=== PATIENT | female | born 1985 | race Caucasian/White ===

== ENCOUNTER 2022-07-27 14:08 | Observation (INO) | payer MEDICAID ==
--- NOTE | 2022-07-27 14:14 | ERPHSYRPT ---
- History of Present Illness Time Seen by Provider: 07/27/22 14:13 Source: patient Exam Limitations: no limitations Physician History: This is a 36-year-old white female who has noticed dizziness that began 2 days ago in the morning and has intermittently persisted. Patient states that she is still and the room is spinning. She denies head injury. She is never had a nything like this before. She has no earaches. She has no sore throat. She does states she does not typically eat or drink well or that often. That is a chronic issue for her. There is been no change in her medication. She is a current daily smoker cigarettes. There is associated nausea. Patient also states that she feels unsteady when she is ambulating. Timing/Duration: yesterday Severity: mild Character of Deficits: none Deficits: no difficulties (But does feel unsteady), off balance Baseline/Normal Cognition: alert oriented x 3 Current Cognition: alert oriented x 3 Baseline Gait: walks w/o assistance Associated Symptoms: nausea, other (Feels unsteady when she does walk but can walk), No confusion, No fatigue, No fever, No chills, No loss of consciousness, No vomiting, No insomnia, No ringing in ears, No slurred speech, No vision changes, No chest pain, No headache Allergies/Adverse Reactions: codeine Allergy (Verified 07/27/22 14:46) Sulfa (Sulfonamide Antibiotics) Allergy (Verified 07/27/22 14:46) Home Medications: No Reportable Medications [No Reported Medications] 07/27/22 [History] Travel Risk - International Travel Have you traveled outside of the country in past 3 weeks: No - Coronavirus Screening Are you exhibiting any of the following symptoms?: No Close contact with a COVID-19 positive Pt in past 14-21 Days: No - Review of Systems Constitutional: No Symptoms Eyes: No Symptoms Ears, Nose, & Throat: No Symptoms Respiratory: No Symptoms Cardiac: No Symptoms Abdominal/Gastrointestinal: No Symptoms Genitourinary Symptoms: No Symptoms Musculoskeletal: No Symptoms Skin: No Symptoms Neurological: Dizziness, Other (Feels unsteady when she is ambulating), No Headache Psychological: No Symptoms Endocrine: No Symptoms Hematologic/Lymphatic: No Symptoms Immunological/Allergic: No Symptoms All Other Systems: Reviewed and Negative - Past Medical History Pertinent Past Medical History: Yes - Past Surgical History Past Surgical History: Yes - Nursing Vital Signs Nursing Vital Signs: Initial Vital Signs Temperature 97.0 F 07/27/22 14:31 Pulse Rate 66 07/27/22 14:31 Respiratory Rate 18 07/27/22 14:31 Blood Pressure 123/58 07/27/22 14:31 O2 Sat by Pulse Oximetry 100 07/27/22 14:31 Pain Scale Pain Intensity 0 - [place] Coma Scale Best Eye Response ([place]): (4) open spontaneously Best Verbal Response ([place]): (5) oriented Best Motor Response ([place]): (6) obeys commands [place] Total: 15 - Physical Exam General Appearance: no apparent distress, alert, anxiety, obese Eye Exam: bilateral eye: normal inspection, PERRL, EOMI Ears, Nose, Throat Exam: normal ENT inspection, moist mucous membranes Neck Exam: normal inspection, non-tender, supple, full range of motion Respiratory: normal breath sounds, lungs clear, airway intact, No chest tenderness, No respiratory distress Cardiovascular: regular rate/rhythm, normal heart sounds, normal peripheral pulses Gastrointestinal: soft, normal bowel sounds, No tenderness Pelvic Exam: not done Rectal Exam: not done Back Exam: normal inspection, normal range of motion, No CVA tenderness Extremity Exam: normal inspection, normal range of motion, pelvis stable Mental Status: alert, oriented x 3, cooperative geriatric social worker Exam: normal hearing, normal speech, PERRL, tongue midline Coordination/Gait: normal finger to nose, normal gait, normal cerebellar function Motor/Sensory: no motor deficit, no sensory deficit, no pronator drift Skin Exam: normal color, warm, dry SpO2 Interpretation: normal O2 Delivery: Room Air - Course Nursing assessment & vital signs reviewed: Yes EKG Interpreted by Me: RATE (68), Sinus Rhythm, NORMAL AXIS, NORMAL INTERVALS, NORMAL QRS, NORMAL ST-T, Other (No acute ischemic changes.) Ordered Tests: Active Orders 24 hr Category Date Time Status Clean Catch Urine Specimen STAT Care 07/27/22 14:45 Active EKG-ER Only STAT Care 07/27/22 14:45 Active IV Insertion STAT Care 07/27/22 14:45 Active ABDOMEN AND PELVIS W/0 CONTRAS [CT] Stat Exams 07/27/22 16:21 Taken HEAD WITHOUT CONTRAST [CT] Stat Exams 07/27/22 14:45 Taken CBC W DIFF Stat Lab 07/27/22 14:40 Completed CMP Stat Lab 07/27/22 14:40 Completed CULTURE,URINE Stat Lab 07/27/22 14:47 Received ETHYL ALCOHOL Stat Lab 07/27/22 14:40 Completed HCG,QUALITATIVE URINE Stat Lab 07/27/22 14:47 Completed Lactic Acid Stat Lab 07/27/22 16:42 Completed MAGNESIUM Stat Lab 07/27/22 14:40 Completed Occult Blood Stool [FECAL OCCULT BLOOD - SCREENING] Lab 07/27/22 16:20 Ordered Stat TROPONIN Q4H Lab 07/27/22 14:40 Completed TROPONIN Q4H Lab 07/27/22 18:45 Ordered TROPONIN Q4H Lab 07/27/22 22:45 Ordered UA W/RFX CULTURE Stat Lab 07/27/22 14:47 Completed Urine Triage Profile Stat Lab 07/27/22 14:47 Completed Medication Summary Discontinued Medications Generic Name Dose Route Start Last Admin Trade Name Freq PRN Reason Stop Dose Admin Sodium Chloride 1,000 mls @ 999 mls/hr 07/27/22 14:45 07/27/22 15:57 Sodium Chloride 0.9% 1000 Ml IV 07/27/22 15:45 Infused .Q1H1M STA Infusion Sodium Chloride Confirm 07/27/22 14:52 Sodium Chloride 0.9% 1000 Ml Administered 07/27/22 14:53 Dose 1,000 mls @ ud .ROUTE .STK-MED ONE Prochlorperazine Edisylate 5 mg 07/27/22 14:45 07/27/22 14:56 Prochlorperazine Edisylate 10 Mg/2 Ml Vial IV 07/27/22 14:46 5 mg STAT ONE Administration Prochlorperazine Edisylate Confirm 07/27/22 14:52 Prochlorperazine Edisylate 10 Mg/2 Ml Vial Administered 07/27/22 14:53 Dose 10 mg .ROUTE .STK-MED ONE Lab/Rad Data: Laboratory Result Diagrams 07/27/22 14:40 07/27/22 14:40 Laboratory Results 07/27/22 07/27/22 07/27/22 Range/Units 16:42 14:47 14:47 WBC (4.0-10.5) x10^3/uL RBC (4.1-5.4) x10^6/uL Hgb (12.0-16.0) g/dL Hct (35-47) % MCV (78-100) fL MCH (26-32) pg MCHC (32-36) g/dL RDW (11.5-14.0) % Plt Count (150-450) x10^3/uL MPV (7.5-11.0) fL Gran % (36.0-66.0) % Immature Gran % (Auto) (0.00-0.4) % Nucleat RBC Rel Count (0.00-0.1) % Eos # (Auto) (0-0.5) x10^3/uL Immature Gran # (Auto) (0.00-0.03) x10^3u/L Absolute Lymphs (auto) (1.0-4.6) x10^3/uL Absolute Monos (auto) (0.0-1.3) x10^3/uL Absolute Nucleated RBC (0.00-0.01) x10^3u/L Lymphocytes % (24.0-44.0) % Monocytes % (0.0-12.0) % Eosinophils % (0.00-5.0) % Basophils % (0.0-0.4) % Absolute Granulocytes (1.4-6.9) x10^3/uL Basophils # (0-0.4) x10^3/uL Sodium (137-145) mmol/L Potassium (3.5-5.1) mmol/L Chloride (98-107) mmol/L Carbon Dioxide (22-30) mmol/L Anion Gap (5-15) MEQ/L BUN (7-17) mg/dL Creatinine (0.52-1.04) mg/dL Estimated GFR ML/MIN Glucose (74-106) mg/dL Lactic Acid 2.0 (0.4-2.0) Calcium (8.4-10.2) mg/dL Magnesium (1.6-2.3) mg/dL Total Bilirubin (0.2-1.3) mg/dL AST (14-36) U/L ALT (0-35) U/L Alkaline Phosphatase (38-126) U/L Troponin I (0.000-0.034) ng/mL Serum Total Protein (6.3-8.2) g/dL Albumin (3.5-5.0) g/dL Urinalys Dipstick Clnc MAIN LAB Urine Color YELLOW (YELLOW) Urine Appearance CLEAR (CLEAR) Urine pH 6.0 (5-6) Ur Specific [place] 1.025 (1.005-1.025) POC Urine Protein Conf NEGATIVE (Negative) Urine Ketones NEGATIVE (NEGATIVE) Urine Nitrite NEGATIVE (NEGATIVE) Urine Bilirubin NEGATIVE (NEGATIVE) Urine Urobilinogen 0.2 (0-1) mg/dL Urine Leukocytes NEGATIVE (NEGATIVE) Urine WBC (Auto) 11-15 A (0-5) /HPF Urine RBC (Auto) 0-2 (0-2) /HPF U Hyaline Cast (Auto) 0-2 (0-2) /LPF U Epithel Cells (Auto) RARE (FEW) /HPF Urine Bacteria (Auto) NONE (NEGATIVE) /HPF Urine RBC NEGATIVE (0-5) Jeet/ul Urine Mucus (Auto) SLIGHT A (NEGATIVE) /HPF Ur Culture Indicated? YES Urine Glucose NEGATIVE (NEGATIVE) mg/dL Urine HCG, Qual NEGATIVE (Negative) Urine Opiates Level (NEGATIVE) Ur Methadone (NEGATIVE) Urine Barbiturates (NEGATIVE) Ur Phencyclidine (PCP) (NEGATIVE) Urine Amphetamine (NEGATIVE) U Benzodiazepine Level (NEGATIVE) Urine Cocaine (NEGATIVE) Urine Marijuana (THC) (NEGATIVE) Ethyl Alcohol (0-10) mg/dL Slides for Path Review 07/27/22 07/27/22 07/27/22 Range/Units 14:47 14:40 14:40 WBC 7.9 (4.0-10.5) x10^3/uL RBC 4.74 (4.1-5.4) x10^6/uL Hgb 7.0 L (12.0-16.0) g/dL Hct 27.4 L (35-47) % MCV 57.8 L (78-100) fL MCH 14.8 L (26-32) pg MCHC 25.5 L (32-36) g/dL RDW 23.2 H (11.5-14.0) % Plt Count 499 H (150-450) x10^3/uL MPV 9.1 (7.5-11.0) fL Gran % 52.4 (36.0-66.0) % Immature Gran % (Auto) 0.4 (0.00-0.4) % Nucleat RBC Rel Count 0.0 (0.00-0.1) % Eos # (Auto) 0.36 (0-0.5) x10^3/uL Immature Gran # (Auto) 0.03 (0.00-0.03) x10^3u/L Absolute Lymphs (auto) 2.68 (1.0-4.6) x10^3/uL Absolute Monos (auto) 0.53 (0.0-1.3) x10^3/uL Absolute Nucleated RBC 0.00 (0.00-0.01) x10^3u/L Lymphocytes % 34.1 (24.0-44.0) % Monocytes % 6.7 (0.0-12.0) % Eosinophils % 4.6 (0.00-5.0) % Basophils % 1.8 (0.0-0.4) % Absolute Granulocytes 4.12 (1.4-6.9) x10^3/uL Basophils # 0.14 (0-0.4) x10^3/uL Sodium 138 (137-145) mmol/L Potassium 3.6 (3.5-5.1) mmol/L Chloride 107 (98-107) mmol/L Carbon Dioxide 24 (22-30) mmol/L Anion Gap 11.1 (5-15) MEQ/L BUN 7 (7-17) mg/dL Creatinine 0.65 (0.52-1.04) mg/dL Estimated GFR > 60.0 ML/MIN Glucose 87 (74-106) mg/dL Lactic Acid (0.4-2.0) Calcium 8.9 (8.4-10.2) mg/dL Magnesium 2.1 (1.6-2.3) mg/dL Total Bilirubin 1.00 (0.2-1.3) mg/dL AST 23 (14-36) U/L ALT 14 (0-35) U/L Alkaline Phosphatase 94 (38-126) U/L Troponin I (0.000-0.034) ng/mL Serum Total Protein 6.9 (6.3-8.2) g/dL Albumin 4.1 (3.5-5.0) g/dL Urinalys Dipstick Clnc Urine Color (YELLOW) Urine Appearance (CLEAR) Urine pH (5-6) Ur Specific [place] (1.005-1.025) POC Urine Protein Conf (Negative) Urine Ketones (NEGATIVE) Urine Nitrite (NEGATIVE) Urine Bilirubin (NEGATIVE) Urine Urobilinogen (0-1) mg/dL Urine Leukocytes (NEGATIVE) Urine WBC (Auto) (0-5) /HPF Urine RBC (Auto) (0-2) /HPF U Hyaline Cast (Auto) (0-2) /LPF U Epithel Cells (Auto) (FEW) /HPF Urine Bacteria (Auto) (NEGATIVE) /HPF Urine RBC (0-5) Jeet/ul Urine Mucus (Auto) (NEGATIVE) /HPF Ur Culture Indicated? Urine Glucose (NEGATIVE) mg/dL Urine HCG, Qual (Negative) Urine Opiates Level NEGATIVE (NEGATIVE) Ur Methadone NEGATIVE (NEGATIVE) Urine Barbiturates NEGATIVE (NEGATIVE) Ur Phencyclidine (PCP) NEGATIVE (NEGATIVE) Urine Amphetamine NEGATIVE (NEGATIVE) U Benzodiazepine Level NEGATIVE (NEGATIVE) Urine Cocaine NEGATIVE (NEGATIVE) Urine Marijuana (THC) NEGATIVE (NEGATIVE) Ethyl Alcohol < 10 (0-10) mg/dL Slides for Path Review YES 07/27/22 Range/Units 14:40 WBC (4.0-10.5) x10^3/uL RBC (4.1-5.4) x10^6/uL Hgb (12.0-16.0) g/dL Hct (35-47) % MCV (78-100) fL MCH (26-32) pg MCHC (32-36) g/dL RDW (11.5-14.0) % Plt Count (150-450) x10^3/uL MPV (7.5-11.0) fL Gran % (36.0-66.0) % Immature Gran % (Auto) (0.00-0.4) % Nucleat RBC Rel Count (0.00-0.1) % Eos # (Auto) (0-0.5) x10^3/uL Immature Gran # (Auto) (0.00-0.03) x10^3u/L Absolute Lymphs (auto) (1.0-4.6) x10^3/uL Absolute Monos (auto) (0.0-1.3) x10^3/uL Absolute Nucleated RBC (0.00-0.01) x10^3u/L Lymphocytes % (24.0-44.0) % Monocytes % (0.0-12.0) % Eosinophils % (0.00-5.0) % Basophils % (0.0-0.4) % Absolute Granulocytes (1.4-6.9) x10^3/uL Basophils # (0-0.4) x10^3/uL Sodium (137-145) mmol/L Potassium (3.5-5.1) mmol/L Chloride (98-107) mmol/L Carbon Dioxide (22-30) mmol/L Anion Gap (5-15) MEQ/L BUN (7-17) mg/dL Creatinine (0.52-1.04) mg/dL Estimated GFR ML/MIN Glucose (74-106) mg/dL Lactic Acid (0.4-2.0) Calcium (8.4-10.2) mg/dL Magnesium (1.6-2.3) mg/dL Total Bilirubin (0.2-1.3) mg/dL AST (14-36) U/L ALT (0-35) U/L Alkaline Phosphatase (38-126) U/L Troponin I < 0.012 (0.000-0.034) ng/mL Serum Total Protein (6.3-8.2) g/dL Albumin (3.5-5.0) g/dL Urinalys Dipstick Clnc Urine Color (YELLOW) Urine Appearance (CLEAR) Urine pH (5-6) Ur Specific [place] (1.005-1.025) POC Urine Protein Conf (Negative) Urine Ketones (NEGATIVE) Urine Nitrite (NEGATIVE) Urine Bilirubin (NEGATIVE) Urine Urobilinogen (0-1) mg/dL Urine Leukocytes (NEGATIVE) Urine WBC (Auto) (0-5) /HPF Urine RBC (Auto) (0-2) /HPF U Hyaline Cast (Auto) (0-2) /LPF U Epithel Cells (Auto) (FEW) /HPF Urine Bacteria (Auto) (NEGATIVE) /HPF Urine RBC (0-5) Jeet/ul Urine Mucus (Auto) (NEGATIVE) /HPF Ur Culture Indicated? Urine Glucose (NEGATIVE) mg/dL Urine HCG, Qual (Negative) Urine Opiates Level (NEGATIVE) Ur Methadone (NEGATIVE) Urine Barbiturates (NEGATIVE) Ur Phencyclidine (PCP) (NEGATIVE) Urine Amphetamine (NEGATIVE) U Benzodiazepine Level (NEGATIVE) Urine Cocaine (NEGATIVE) Urine Marijuana (THC) (NEGATIVE) Ethyl Alcohol (0-10) mg/dL Slides for Path Review - Progress Progress: unchanged Progress Note: 07/27/22 17:12 CT scan of head without contrast shows no intracranial abnormality. CT scan of abdomen pelvis without contrast shows transmural wall thickening ascending colon to descending colon consistent with regional colitis. Medical decision making: This patient surprisingly was found to have hemoglobin of 7 and symptomatic anemia. She is weak and dizzy. CAT scan of the abdomen shows picture consistent with regional colitis. However, the patient does not complain of any abdominal pain. She is not having diarrhea per her report. I spoke with Dr. Vinson. We will place her in observation and provide her with intravenous fluids, intravenous antibiotics and transfuse her 2 units of packed red blood cells. We will obtain a stool specimen for occult blood. He will also perform a anemia work-up during this hospitalization as she has no family doctor or primary care physician/provider to follow-up with. Discussed with : Madhav Counseled pt/family regarding: lab results, diagnosis, need for follow-up, rad results - Departure Departure Disposition: Observation Clinical Impression: Symptomatic anemia, Regional colitis Condition: Stable Critical Care Time: Yes Critical Care Time(excluding separately billable procedures): Critical 30-74 mins (40 minutes) Referrals: DOCTOR,NO FAMILY [Primary Care Provider] - Follow up/PCP as directed
[2022-07-27] MEDS ORDERED: Compazine 10 MG/2 ML IV ONE (14:45)
[2022-07-27] MEDS ORDERED: Sodium Chloride 0.9% 1000 ML 1,000 ML IV STA (14:45)
[2022-07-27] MEDS ORDERED: Compazine 10 MG/2 ML ONE (14:52)
[2022-07-27] MEDS ORDERED: Sodium Chloride 0.9% 1000 ML 1,000 ML ONE (14:52)
[2022-07-27 15:16] LABS: Appearance CLEAR (CLEAR); Bilirubin NEGATIVE (NEGATIVE); Epithelial Cells RARE /HPF (FEW); Glucose NEGATIVE (NEGATIVE); Hyaline Casts 0-2 /LPF (0-2); Ketones NEGATIVE (NEGATIVE); Mucus SLIGHT /HPF (NEGATIVE); RBC 0-2 /HPF (0-2); RBC NEGATIVE Ery/ul (0-5); Specific Gravity 1.025 (1.005-1.025)
[2022-07-27 15:17] LABS: Dipstick done @ ? MAIN LAB; Nitrite NEGATIVE (NEGATIVE); Protein,Urine Dip NEGATIVE (Negative); Urine Cultured Indicated? YES; Urobilinogen 0.2 mg/dL (0-1)
[2022-07-27 15:20] LABS: Amphetamine,Urine NEGATIVE (NEGATIVE); Barbiturate,Urine NEGATIVE (NEGATIVE); Benzodiazepine,Urine NEGATIVE (NEGATIVE); Cocaine,Urine NEGATIVE (NEGATIVE); Methadone,Urine NEGATIVE (NEGATIVE); Opiate,Urine NEGATIVE (NEGATIVE); PCP,Urine NEGATIVE (NEGATIVE); THC,Urine NEGATIVE (NEGATIVE)
[2022-07-27 15:21] LABS: Absolute Neutrophil Ct (ANC) 4.12 x10^3/uL (1.4-6.9); Basophil (Absolute #) 0.14 x10^3/uL (0-0.4); Eosinophil % 4.6 % (0.00-5.0); Eosinophil (Absolute #) 0.36 x10^3/uL (0-0.5); Hematocrit 27.4 % (35-47); Lymphocyte (Absolute #) 2.68 x10^3/uL (1.0-4.6); Lymphocytes % 34.1 % (24.0-44.0); Mean Cell Volume 57.8 fL (78-100); Mean Corpuscular Hemoglobin 14.8 pg (26-32); Mean Corpuscular Hgb Concent. 25.5 g/dL (32-36); Mean Platelet Volume 9.1 fL (7.5-11.0); Monocyte (Absolute #) 0.53 x10^3/uL (0.0-1.3); Monocytes % 6.7 % (0.0-12.0); Neutrophil % 52.4 % (36.0-66.0); Platelet Count 499 x10^3/uL (150-450); Red Blood Count 4.74 x10^6/uL (4.1-5.4); Red Cell Distribution Width 23.2 % (11.5-14.0); White Blood Count 7.9 x10^3/uL (4.0-10.5)
[2022-07-27 15:35] LABS: ALBUMIN 4.1 g/dL (3.5-5.0); ALKALINE PHOSPHATASE 94 U/L (38-126); ANION GAP 11.1 MEQ/L (5-15); BLOOD UREA NITROGEN 7 mg/dL (7-17); CHLORIDE 107 mmol/L (98-107); Calcium 8.9 mg/dL (8.4-10.2); Carbon Dioxide 24 mmol/L (22-30); Creatinine 1 0.65 mg/dL (0.52-1.04); EST GLOMERULAR FILTRATION RATE > 60.0 ML/MIN; ETHYL ALCOHOL < 10 mg/dL (0-10); Glucose 87 mg/dL (74-106); MAGNESIUM 2.1 mg/dL (1.6-2.3); Potassium 3.6 mmol/L (3.5-5.1); SGOT/AST 23 U/L (14-36); SGPT/ALT 14 U/L (0-35); SODIUM 138 mmol/L (137-145); Total Protein 6.9 g/dL (6.3-8.2)
[2022-07-27 16:51] LABS: Slide Review 1 YES
[2022-07-27] MEDS ORDERED: PIPERACILLIN/TAZOBACTAM 4.5 GM in Sodium Chloride 100ML MINI-BAG PLUS 100 ML IV ONE (17:22)
[2022-07-27] MEDS ORDERED: Sodium Chloride 100ML MINI-BAG PLUS 100 ML IV ONE (17:36)
[2022-07-27] MEDS ORDERED: PIPERACILLIN/TAZOBACTAM IV ONE (17:36)
[2022-07-27 18:19] LABS: INFLUENZA A NEGATIVE (NEGATIVE); INFLUENZA B NEGATIVE (NEGATIVE); RESPIRATORY SYNCTIAL VIRUS NEGATIVE (Negative); SARS-CoV-2 Xpert Express NEGATIVE (NEGATIVE)
[2022-07-27] MEDS ORDERED: Zofran 4 MG/2 ML VIAL IV PRN (18:29)
[2022-07-27] MEDS ORDERED: TYLENOL 325 MG PO PRN (18:29)
[2022-07-27] MEDS: PIPERACILLIN/TAZOBACTAM 3.375 GM in Sodium Chloride 100ML MINI-BAG PLUS 100 ML IV SCH ×2 (18:38→18:52)
[2022-07-27] MEDS: Sodium Chloride 0.9% 1000 ML 1,000 ML IV SCH (18:50)
--- NOTE | 2022-07-27 19:21 | XRAY ---
Indication: Dizziness. History of breast cancer. Multiple contiguous axial images obtained through the head without contrast. Comparison: None Normal appearing brain parenchyma, ventricles, and bony calvarium for patient's age. 1.8 cm left maxillary sinus polyp/retention cyst. Remaining visualized paranasal sinuses and mastoid air cells are clear. Impression: Normal CT head without contrast exam. Incidental left maxillary sinus polyp/retention cyst. Comment: Preliminary interpretation made by [facility]. No critical discrepancy.
--- NOTE | 2022-07-27 19:23 | XRAY ---
Indication: Dizziness. Low hemoglobin. History of breast cancer. Multiple contiguous axial images obtained through the abdomen and pelvis without contrast. Comparison: None Lung bases clear. Heart not enlarged. Partially visualized bilateral breast implants. Noncontrasted stomach and bowel loops appear nonobstructed. Previous appendectomy and cholecystectomy. Uterus levorotated with IUD in situ. No free fluid/air. Remaining liver, pancreas, spleen, adrenal glands, kidneys, ureters, bladder, uterus, and aorta are unremarkable for noncontrast exam. Osseous structures intact. No suspicious bony lesions. Impression: Negative CT abdomen/pelvis without contrast exam. Comment: Preliminary interpretation made by [facility]. No critical discrepancy.
[2022-07-27 21:03] LABS: ABO TYPING O; Antibody Screen NEGATIVE (NEGATIVE); RH TYPING POSITIVE
[2022-07-27 21:04] LABS: CROSS MATCH (PRBC) COMPATIBLE (COMPATIBLE)
[2022-07-28] MEDS: PIPERACILLIN/TAZOBACTAM 3.375 GM in Sodium Chloride 100ML MINI-BAG PLUS 100 ML IV SCH ×2 (00:34→05:40)
[2022-07-28 04:43] LABS: Absolute Neutrophil Ct (ANC) 4.02 x10^3/uL (1.4-6.9); Eosinophil (Absolute #) 0.43 x10^3/uL (0-0.5); Hematocrit 30.6 % (35-47); Hemoglobin 8.4 g/dL (12.0-16.0); Lymphocyte (Absolute #) 3.56 x10^3/uL (1.0-4.6); Lymphocytes % 41.1 % (24.0-44.0); Mean Cell Volume 63.5 fL (78-100); Mean Corpuscular Hemoglobin 17.4 pg (26-32); Mean Corpuscular Hgb Concent. 27.5 g/dL (32-36); Mean Platelet Volume 8.6 fL (7.5-11.0); Monocyte (Absolute #) 0.53 x10^3/uL (0.0-1.3); Monocytes % 6.1 % (0.0-12.0); Neutrophil % 46.3 % (36.0-66.0); Platelet Count 327 x10^3/uL (150-450); Red Blood Count 4.82 x10^6/uL (4.1-5.4); Red Cell Distribution Width 29.6 % (11.5-14.0); White Blood Count 8.7 x10^3/uL (4.0-10.5)
[2022-07-28 05:00] LABS: ALBUMIN 3.5 g/dL (3.5-5.0); ALKALINE PHOSPHATASE 78 U/L (38-126); ANION GAP 9.5 MEQ/L (5-15); BLOOD UREA NITROGEN 5 mg/dL (7-17); CHLORIDE 108 mmol/L (98-107); Calcium 8.3 mg/dL (8.4-10.2); Carbon Dioxide 25 mmol/L (22-30); Creatinine 1 0.79 mg/dL (0.52-1.04); EST GLOMERULAR FILTRATION RATE > 60.0 ML/MIN; Glucose 80 mg/dL (74-106); Potassium 3.4 mmol/L (3.5-5.1); SGOT/AST 33 U/L (14-36); SGPT/ALT 15 U/L (0-35); SODIUM 139 mmol/L (137-145); Total Protein 6.1 g/dL (6.3-8.2)
[2022-07-28] MEDS ORDERED: PIPERACILLIN/TAZOBACTAM IV ONE (05:19)
[2022-07-28] MEDS ORDERED: Sodium Chloride 100ML MINI-BAG PLUS 100 ML IV ONE (05:23)
[2022-07-28] MEDS: Sodium Chloride 0.9% 1000 ML 1,000 ML IV SCH (10:01)
[2022-07-28 12:53] VITALS: BP 132/62; PULSE 87; O2SAT 97
--- NOTE | 2022-07-28 13:31 | PCM.SSS ---
History of Present Illness - Chief Complaint Chief Complaint: dizziness and weakness for 2-3 days History of Present Illness: is a 36 year old female.who has noticed dizziness that began 2 days ago in the morning and has intermittently persisted. Patient states that she is still and the room is spinning. She denies head injury. She is never had anything like this before. She has no earaches. She has no sore throat. She does states she does not typically eat or drink well or that often. That is a chronic issue for her. There is been no change in her medication. She is a c urrent daily smoker cigarettes. There is associated nausea. Patient also states that she feels unsteady when she is ambulating. Timing/Duration: yesterday Severity: mild Character of Deficits: none Deficits: no difficulties (But does feel unsteady), off balance Baseline/Normal Cognition: alert oriented x 3 Current Cognition: alert oriented x 3 Baseline Gait: walks w/o assistance Associated Symptoms: nausea, other (Feels unsteady when she does walk but can walk), No confusion, No fatigue, No fever, No chills, No loss of consciousness, No vomiting, No insomnia, No ringing in ears, No slurred speech, No vision changes, No chest pain, No headache - Review of Systems Constitutional: Weakness, No Fever, No Chills Eyes: No Symptoms Ears, Nose, & Throat: No Symptoms Respiratory: No Cough, No Short Of Breath Cardiac: No Chest Pain, No Edema, No Syncope Abdominal/Gastrointestinal: No Abdominal Pain, No Nausea, No Vomiting, No Karen rrhea Genitourinary Symptoms: No Dysuria Musculoskeletal: No Back Pain, No Neck Pain Skin: No Rash Neurological: Dizziness, No Focal Weakness, No Sensory Changes Psychological: No Symptoms Endocrine: No Symptoms Hematologic/Lymphatic: No Symptoms Immunological/Allergic: No Symptoms Medications & Allergies Home Medications: Home Medication List Acetaminophen 325 mg [Tylenol 325 mg] 650 mg PO Q4H PRN PRN tablet 07/28/22 [Rx] Allergies/Adverse Reactions: Allergies Allergy/AdvReac Type Severity Reaction Status Date / Time codeine Allergy Verified 07/27/22 14:46 Sulfa (Sulfonamide Allergy Verified 07/27/22 14:46 Antibiotics) - Past Medical History Past Medical History: Yes Reproductive Disorders: Breast Cancer Comment: bilat masectomy for breast cancer and lymph removal on the right. - Female History Hx Last Menstrual Period: week ago Are you now?: No - Past Surgical History Past Surgical History: Yes Female Surgical History: Mastectomy Other Surgical History: bilat mastectomy with reconstruction - Social History Smoking Status: Current every day smoker Exposure to second hand smoke: Yes Alcohol: None Drug Use: none - Physical Exam Vital Signs: Vital Signs - 24 hr Temp Pulse Resp BP Pulse Ox 07/28/22 12:00 97.5 F 87 17 132/62 97 07/28/22 07:48 97.1 F 77 16 119/71 96 07/28/22 04:00 97.7 F 58 L 16 120/69 98 07/28/22 00:00 97.8 F 66 16 130/64 100 07/27/22 20:00 97.7 F 70 18 113/76 99 07/27/22 18:54 97.7 F 70 18 113/76 99 07/27/22 18:29 98 07/27/22 17:44 78 18 115/78 98 07/27/22 15:30 68 16 117/59 98 07/27/22 14:31 97.0 F 66 18 123/58 100 General Appearance: no apparent distress, alert Neurologic Exam: alert, oriented x 3, cooperative, normal mood/affect, nml cerebellar function, nml station & gait, sensation nml, No motor deficits Eye Exam: PERRL/EOMI, eyes nml inspection Ears, Nose, Throat Exam: normal ENT inspection, TMs normal, pharynx normal, moist mucous membranes Neck Exam: normal inspection, non-tender, supple, full range of motion Respiratory Exam: normal breath sounds, lungs clear, No respiratory distress Cardiovascular Exam: regular rate/rhythm, normal heart sounds, normal peripheral pulses Gastrointestinal/Abdomen Exam: soft, normal bowel sounds, No tenderness, No mass Back Exam: normal inspection, normal range of motion, No CVA tenderness, No vertebral tenderness Extremity Exam: normal inspection, normal range of motion, pelvis stable Skin Exam: normal color, warm, dry, No rash Lymphatic Exam: No adenopathy Results - Labs Lab/Micro Results: Lab Results-Last 24 Hours 07/27/22 07/27/22 07/27/22 Range/Units 14:40 14:40 14:40 WBC 7.9 (4.0-10.5) x10^3/uL RBC 4.74 (4.1-5.4) x10^6/uL Hgb 7.0 L (12.0-16.0) g/dL Hct 27.4 L (35-47) % MCV 57.8 L (78-100) fL MCH 14.8 L (26-32) pg MCHC 25.5 L (32-36) g/dL RDW 23.2 H (11.5-14.0) % Plt Count 499 H (150-450) x10^3/uL MPV 9.1 (7.5-11.0) fL Gran % 52.4 (36.0-66.0) % Immature Gran % (Auto) 0.4 (0.00-0.4) % Nucleat RBC Rel Count 0.0 (0.00-0.1) % Eos # (Auto) 0.36 (0-0.5) x10^3/uL Immature Gran # (Auto) 0.03 (0.00-0.03) x10^3u/L Absolute Lymphs (auto) 2.68 (1.0-4.6) x10^3/uL Absolute Monos (auto) 0.53 (0.0-1.3) x10^3/uL Absolute Nucleated RBC 0.00 (0.00-0.01) x10^3u/L Lymphocytes % 34.1 (24.0-44.0) % Monocytes % 6.7 (0.0-12.0) % Eosinophils % 4.6 (0.00-5.0) % Basophils % 1.8 (0.0-0.4) % Absolute Granulocytes 4.12 (1.4-6.9) x10^3/uL Basophils # 0.14 (0-0.4) x10^3/uL Sodium 138 (137-145) mmol/L Potassium 3.6 (3.5-5.1) mmol/L Chloride 107 (98-107) mmol/L Carbon Dioxide 24 (22-30) mmol/L Anion Gap 11.1 (5-15) MEQ/L BUN 7 (7-17) mg/dL Creatinine 0.65 (0.52-1.04) mg/dL Estimated GFR > 60.0 ML/MIN Glucose 87 (74-106) mg/dL Lactic Acid (0.4-2.0) Calcium 8.9 (8.4-10.2) mg/dL Magnesium 2.1 (1.6-2.3) mg/dL Total Bilirubin 1.00 (0.2-1.3) mg/dL AST 23 (14-36) U/L ALT 14 (0-35) U/L Alkaline Phosphatase 94 (38-126) U/L Troponin I < 0.012 (0.000-0.034) ng/mL Serum Total Protein 6.9 (6.3-8.2) g/dL Albumin 4.1 (3.5-5.0) g/dL Urinalys Dipstick Clnc Urine Color (YELLOW) Urine Appearance (CLEAR) Urine pH (5-6) Ur Specific [place] (1.005-1.025) POC Urine Protein Conf (Negative) Urine Ketones (NEGATIVE) Urine Nitrite (NEGATIVE) Urine Bilirubin (NEGATIVE) Urine Urobilinogen (0-1) mg/dL Urine Leukocytes (NEGATIVE) Urine WBC (Auto) (0-5) /HPF Urine RBC (Auto) (0-2) /HPF U Hyaline Cast (Auto) (0-2) /LPF U Epithel Cells (Auto) (FEW) /HPF Urine Bacteria (Auto) (NEGATIVE) /HPF Urine RBC (0-5) Jeet/ul Urine Mucus (Auto) (NEGATIVE) /HPF Ur Culture Indicated? Urine Glucose (NEGATIVE) mg/dL Urine HCG, Qual (Negative) Urine Opiates Level (NEGATIVE) Ur Methadone (NEGATIVE) Urine Barbiturates (NEGATIVE) Ur Phencyclidine (PCP) (NEGATIVE) Urine Amphetamine (NEGATIVE) U Benzodiazepine Level (NEGATIVE) Urine Cocaine (NEGATIVE) Urine Marijuana (THC) (NEGATIVE) Ethyl Alcohol < 10 (0-10) mg/dL Influenza Type A Ag (NEGATIVE) Influenza Type B Ag (NEGATIVE) RSV (PCR) (Negative) SARS-CoV-2 (PCR) (NEGATIVE) Slides for Path Review YES ABO Group Rh Factor Antibody Screen (NEGATIVE) Crossmatch (COMPATIBLE) 07/27/22 07/27/22 07/27/22 Range/Units 14:47 14:47 14:47 WBC (4.0-10.5) x10^3/uL RBC (4.1-5.4) x10^6/uL Hgb (12.0-16.0) g/dL Hct (35-47) % MCV (78-100) fL MCH (26-32) pg MCHC (32-36) g/dL RDW (11.5-14.0) % Plt Count (150-450) x10^3/uL MPV (7.5-11.0) fL Gran % (36.0-66.0) % Immature Gran % (Auto) (0.00-0.4) % Nucleat RBC Rel Count (0.00-0.1) % Eos # (Auto) (0-0.5) x10^3/uL Immature Gran # (Auto) (0.00-0.03) x10^3u/L Absolute Lymphs (auto) (1.0-4.6) x10^3/uL Absolute Monos (auto) (0.0-1.3) x10^3/uL Absolute Nucleated RBC (0.00-0.01) x10^3u/L Lymphocytes % (24.0-44.0) % Monocytes % (0.0-12.0) % Eosinophils % (0.00-5.0) % Basophils % (0.0-0.4) % Absolute Granulocytes (1.4-6.9) x10^3/uL Basophils # (0-0.4) x10^3/uL Sodium (137-145) mmol/L Potassium (3.5-5.1) mmol/L Chloride (98-107) mmol/L Carbon Dioxide (22-30) mmol/L Anion Gap (5-15) MEQ/L BUN (7-17) mg/dL Creatinine (0.52-1.04) mg/dL Estimated GFR ML/MIN Glucose (74-106) mg/dL Lactic Acid (0.4-2.0) Calcium (8.4-10.2) mg/dL Magnesium (1.6-2.3) mg/dL Total Bilirubin (0.2-1.3) mg/dL AST (14-36) U/L ALT (0-35) U/L Alkaline Phosphatase (38-126) U/L Troponin I (0.000-0.034) ng/mL Serum Total Protein (6.3-8.2) g/dL Albumin (3.5-5.0) g/dL Urinalys Dipstick Clnc MAIN LAB Urine Color YELLOW (YELLOW) Urine Appearance CLEAR (CLEAR) Urine pH 6.0 (5-6) Ur Specific [place] 1.025 (1.005-1.025) POC Urine Protein Conf NEGATIVE (Negative) Urine Ketones NEGATIVE (NEGATIVE) Urine Nitrite NEGATIVE (NEGATIVE) Urine Bilirubin NEGATIVE (NEGATIVE) Urine Urobilinogen 0.2 (0-1) mg/dL Urine Leukocytes NEGATIVE (NEGATIVE) Urine WBC (Auto) 11-15 A (0-5) /HPF Urine RBC (Auto) 0-2 (0-2) /HPF U Hyaline Cast (Auto) 0-2 (0-2) /LPF U Epithel Cells (Auto) RARE (FEW) /HPF Urine Bacteria (Auto) NONE (NEGATIVE) /HPF Urine RBC NEGATIVE (0-5) Jeet/ul Urine Mucus (Auto) SLIGHT A (NEGATIVE) /HPF Ur Culture Indicated? YES Urine Glucose NEGATIVE (NEGATIVE) mg/dL Urine HCG, Qual NEGATIVE (Negative) Urine Opiates Level NEGATIVE (NEGATIVE) Ur Methadone NEGATIVE (NEGATIVE) Urine Barbiturates NEGATIVE (NEGATIVE) Ur Phencyclidine (PCP) NEGATIVE (NEGATIVE) Urine Amphetamine NEGATIVE (NEGATIVE) U Benzodiazepine Level NEGATIVE (NEGATIVE) Urine Cocaine NEGATIVE (NEGATIVE) Urine Marijuana (THC) NEGATIVE (NEGATIVE) Ethyl Alcohol (0-10) mg/dL Influenza Type A Ag (NEGATIVE) Influenza Type B Ag (NEGATIVE) RSV (PCR) (Negative) SARS-CoV-2 (PCR) (NEGATIVE) Slides for Path Review ABO Group Rh Factor Antibody Screen (NEGATIVE) Crossmatch (COMPATIBLE) 07/27/22 07/27/22 07/27/22 Range/Units 16:42 16:55 17:38 WBC (4.0-10.5) x10^3/uL RBC (4.1-5.4) x10^6/uL Hgb (12.0-16.0) g/dL Hct (35-47) % MCV (78-100) fL MCH (26-32) pg MCHC (32-36) g/dL RDW (11.5-14.0) % Plt Count (150-450) x10^3/uL MPV (7.5-11.0) fL Gran % (36.0-66.0) % Immature Gran % (Auto) (0.00-0.4) % Nucleat RBC Rel Count (0.00-0.1) % Eos # (Auto) (0-0.5) x10^3/uL Immature Gran # (Auto) (0.00-0.03) x10^3u/L Absolute Lymphs (auto) (1.0-4.6) x10^3/uL Absolute Monos (auto) (0.0-1.3) x10^3/uL Absolute Nucleated RBC (0.00-0.01) x10^3u/L Lymphocytes % (24.0-44.0) % Monocytes % (0.0-12.0) % Eosinophils % (0.00-5.0) % Basophils % (0.0-0.4) % Absolute Granulocytes (1.4-6.9) x10^3/uL Basophils # (0-0.4) x10^3/uL Sodium (137-145) mmol/L Potassium (3.5-5.1) mmol/L Chloride (98-107) mmol/L Carbon Dioxide (22-30) mmol/L Anion Gap (5-15) MEQ/L BUN (7-17) mg/dL Creatinine (0.52-1.04) mg/dL Estimated GFR ML/MIN Glucose (74-106) mg/dL Lactic Acid 2.0 (0.4-2.0) Calcium (8.4-10.2) mg/dL Magnesium (1.6-2.3) mg/dL Total Bilirubin (0.2-1.3) mg/dL AST (14-36) U/L ALT (0-35) U/L Alkaline Phosphatase (38-126) U/L Troponin I (0.000-0.034) ng/mL Serum Total Protein (6.3-8.2) g/dL Albumin (3.5-5.0) g/dL Urinalys Dipstick Clnc Urine Color (YELLOW) Urine Appearance (CLEAR) Urine pH (5-6) Ur Specific [place] (1.005-1.025) POC Urine Protein Conf (Negative) Urine Ketones (NEGATIVE) Urine Nitrite (NEGATIVE) Urine Bilirubin (NEGATIVE) Urine Urobilinogen (0-1) mg/dL Urine Leukocytes (NEGATIVE) Urine WBC (Auto) (0-5) /HPF Urine RBC (Auto) (0-2) /HPF U Hyaline Cast (Auto) (0-2) /LPF U Epithel Cells (Auto) (FEW) /HPF Urine Bacteria (Auto) (NEGATIVE) /HPF Urine RBC (0-5) Jeet/ul Urine Mucus (Auto) (NEGATIVE) /HPF Ur Culture Indicated? Urine Glucose (NEGATIVE) mg/dL Urine HCG, Qual (Negative) Urine Opiates Level (NEGATIVE) Ur Methadone (NEGATIVE) Urine Barbiturates (NEGATIVE) Ur Phencyclidine (PCP) (NEGATIVE) Urine Amphetamine (NEGATIVE) U Benzodiazepine Level (NEGATIVE) Urine Cocaine (NEGATIVE) Urine Marijuana (THC) (NEGATIVE) Ethyl Alcohol (0-10) mg/dL Influenza Type A Ag NEGATIVE (NEGATIVE) Influenza Type B Ag NEGATIVE (NEGATIVE) RSV (PCR) NEGATIVE (Negative) SARS-CoV-2 (PCR) NEGATIVE (NEGATIVE) Slides for Path Review ABO Group O Rh Factor POSITIVE Antibody Screen NEGATIVE (NEGATIVE) Crossmatch COMPATIBLE (COMPATIBLE) 07/27/22 07/28/22 07/28/22 Range/Units 17:40 04:40 04:40 WBC 8.7 (4.0-10.5) x10^3/uL RBC 4.82 (4.1-5.4) x10^6/uL Hgb 8.4 L (12.0-16.0) g/dL Hct 30.6 L (35-47) % MCV 63.5 L D (78-100) fL MCH 17.4 L (26-32) pg MCHC 27.5 L (32-36) g/dL RDW 29.6 H (11.5-14.0) % Plt Count 327 D (150-450) x10^3/uL MPV 8.6 (7.5-11.0) fL Gran % 46.3 (36.0-66.0) % Immature Gran % (Auto) 0.3 (0.00-0.4) % Nucleat RBC Rel Count 0.0 (0.00-0.1) % Eos # (Auto) 0.43 (0-0.5) x10^3/uL Immature Gran # (Auto) 0.03 (0.00-0.03) x10^3u/L Absolute Lymphs (auto) 3.56 (1.0-4.6) x10^3/uL Absolute Monos (auto) 0.53 (0.0-1.3) x10^3/uL Absolute Nucleated RBC 0.00 (0.00-0.01) x10^3u/L Lymphocytes % 41.1 (24.0-44.0) % Monocytes % 6.1 (0.0-12.0) % Eosinophils % 5.0 (0.00-5.0) % Basophils % 1.2 (0.0-0.4) % Absolute Granulocytes 4.02 (1.4-6.9) x10^3/uL Basophils # 0.10 (0-0.4) x10^3/uL Sodium 139 (137-145) mmol/L Potassium 3.4 L (3.5-5.1) mmol/L Chloride 108 H (98-107) mmol/L Carbon Dioxide 25 (22-30) mmol/L Anion Gap 9.5 (5-15) MEQ/L BUN 5 L (7-17) mg/dL Creatinine 0.79 (0.52-1.04) mg/dL Estimated GFR > 60.0 ML/MIN Glucose 80 (74-106) mg/dL Lactic Acid (0.4-2.0) Calcium 8.3 L (8.4-10.2) mg/dL Magnesium (1.6-2.3) mg/dL Total Bilirubin 1.90 H (0.2-1.3) mg/dL AST 33 (14-36) U/L ALT 15 (0-35) U/L Alkaline Phosphatase 78 (38-126) U/L Troponin I (0.000-0.034) ng/mL Serum Total Protein 6.1 L (6.3-8.2) g/dL Albumin 3.5 (3.5-5.0) g/dL Urinalys Dipstick Clnc Urine Color (YELLOW) Urine Appearance (CLEAR) Urine pH (5-6) Ur Specific [place] (1.005-1.025) POC Urine Protein Conf (Negative) Urine Ketones (NEGATIVE) Urine Nitrite (NEGATIVE) Urine Bilirubin (NEGATIVE) Urine Urobilinogen (0-1) mg/dL Urine Leukocytes (NEGATIVE) Urine WBC (Auto) (0-5) /HPF Urine RBC (Auto) (0-2) /HPF U Hyaline Cast (Auto) (0-2) /LPF U Epithel Cells (Auto) (FEW) /HPF Urine Bacteria (Auto) (NEGATIVE) /HPF Urine RBC (0-5) Jeet/ul Urine Mucus (Auto) (NEGATIVE) /HPF Ur Culture Indicated? Urine Glucose (NEGATIVE) mg/dL Urine HCG, Qual (Negative) Urine Opiates Level (NEGATIVE) Ur Methadone (NEGATIVE) Urine Barbiturates (NEGATIVE) Ur Phencyclidine (PCP) (NEGATIVE) Urine Amphetamine (NEGATIVE) U Benzodiazepine Level (NEGATIVE) Urine Cocaine (NEGATIVE) Urine Marijuana (THC) (NEGATIVE) Ethyl Alcohol (0-10) mg/dL Influenza Type A Ag (NEGATIVE) Influenza Type B Ag (NEGATIVE) RSV (PCR) (Negative) SARS-CoV-2 (PCR) (NEGATIVE) Slides for Path Review ABO Group Rh Factor Antibody Screen (NEGATIVE) Crossmatch COMPATIBLE (COMPATIBLE) Microbiology 07/27/22 14:47 Urine Culture - Preliminary Urine, Void NO GROWTH TO DATE - Radiology Impressions Radiology Exams & Impressions: Radiology Procedures Category Date Time Status ABDOMEN AND PELVIS W/0 CONTRAS [CT] Stat Exams 07/27/22 16:21 Completed HEAD WITHOUT CONTRAST [CT] Stat Exams 07/27/22 14:[address]/ABDOMEN AND PELVIS W/0 CONTRAS Indication: Dizziness. Low hemoglobin. History of breast cancer. Multiple contiguous axial images obtained through the abdomen and pelvis without contrast. Comparison: None Lung bases clear. Heart not enlarged. Partially visualized bilateral breast implants. Noncontrasted stomach and bowel loops appear nonobstructed. Previous appendectomy and cholecystectomy. Uterus levorotated with IUD in situ. No free fluid/air. Remaining liver, pancreas, spleen, adrenal glands, kidneys, ureters, bladder, uterus, and aorta are unremarkable for noncontrast exam. Osseous structures intact. No suspicious bony lesions. Impression: Negative CT abdomen/pelvis without contrast exam. 0008 CT/HEAD WITHOUT CONTRAST Indication: Dizziness. History of breast cancer. Multiple contiguous axial images obtained through the head without contrast. Comparison: None Normal appearing brain parenchyma, ventricles, and bony calvarium for patient's age. 1.8 cm left maxillary sinus polyp/retention cyst. Remaining visualized paranasal sinuses and mastoid air cells are clear. Impression: Normal CT head without contrast exam. Incidental left maxillary sinus polyp/retention cyst. Hospital Summary - Hospital Course Hospital Course: Chief Complaint Diagnosis anemia Allergies Allergy/AdvReac Type Severity Reaction Status Date / Time codeine Allergy Verified 07/27/22 14:46 Sulfa (Sulfonamide Allergy Verified 07/27/22 14:46 Antibiotics) Vital Signs (Last 24 hours) Temp Pulse Resp BP Pulse Ox 07/28/22 12:00 97.5 F 87 17 132/62 97 07/28/22 07:48 97.1 F 77 16 119/71 96 07/28/22 04:00 97.7 F 58 L 16 120/69 98 07/28/22 00:00 97.8 F 66 16 130/64 100 07/27/22 20:00 97.7 F 70 18 113/76 99 07/27/22 18:54 97.7 F 70 18 113/76 99 07/27/22 18:29 98 07/27/22 17:44 78 18 115/78 98 07/27/22 15:30 68 16 117/59 98 07/27/22 14:31 97.0 F 66 18 123/58 100 Home Medications Medication Instructions Recorded Confirmed Last Taken Type Acetaminophen 325 mg [Tylenol 650 mg PO Q4H PRN PRN tablet 07/28/22 Unknown Rx 325 mg] Current Medications Generic Name Dose Route Start Last Admin Trade Name Freq PRN Reason Stop Dose Admin Acetaminophen 650 mg 07/27/22 18:29 Acetaminophen 325 Mg Tablet PO 08/26/22 18:28 Q4H PRN PRN PAIN, FEVER, HEADACHE Sodium Chloride 1,000 mls @ 100 mls/hr 07/27/22 18:29 07/28/22 10:01 Sodium Chloride 0.9% 1000 Ml IV 08/26/22 18:28 100 mls/hr .Q10H KENRICK Administration Piperacillin Sod/Tazobactam 100 mls @ 200 mls/hr 07/27/22 18:29 07/28/22 05:40 Sod 3.375 gm/ Sodium Chloride IV 07/30/22 18:28 200 mls/hr Q6HT KENRICK Administration Ondansetron HCl 4 mg 07/27/22 18:29 Ondansetron Hcl 4 Mg/2 Ml Vial IV 08/26/22 18:28 Q6H PRN PRN NAUSEA/VOMITING Discontinued Medications Generic Name Dose Route Start Last Admin Trade Name Pb PRN Reason Stop Dose Admin Sodium Chloride 1,000 mls @ 999 mls/hr 07/27/22 14:45 07/27/22 15:57 Sodium Chloride 0.9% 1000 Ml IV 07/27/22 15:45 Infused .Q1H1M STA Infusion Sodium Chloride Confirm 07/27/22 14:52 Sodium Chloride 0.9% 1000 Ml Administered 07/27/22 14:53 Dose 1,000 mls @ ud .ROUTE .STK-MED ONE Piperacillin Sod/Tazobactam 100 mls @ 200 mls/hr 07/27/22 17:22 07/27/22 17:40 Sod 4.5 gm/ Sodium Chloride IV 07/27/22 17:51 200 mls/hr STAT ONE Administration Sodium Chloride Confirm 07/27/22 17:36 Sodium Chloride 100ml Mini-Bag Plus Administered 07/27/22 17:37 Dose 100 mls @ ud IV .STK-MED ONE Sodium Chloride Confirm 07/28/22 05:23 Sodium Chloride 100ml Mini-Bag Plus Administered 07/28/22 05:24 Dose 100 mls @ ud IV .STK-MED ONE Piperacillin Sod/Tazobactam Sod Confirm 07/27/22 17:36 Piperacillin/Tazobactam Sodium 4.5 Gm Vial Administered 07/27/22 17:37 Dose 4.5 gm IV .STK-MED ONE Piperacillin Sod/Tazobactam Sod Confirm 07/28/22 05:19 Piperacillin/Tazobactam Sodium 3.375 Gm Vial Administered 07/28/22 05:20 Dose 3.375 gm IV .STK-MED ONE Prochlorperazine Edisylate 5 mg 07/27/22 14:45 07/27/22 14:56 Prochlorperazine Edisylate 10 Mg/2 Ml Vial IV 07/27/22 14:46 5 mg STAT ONE Administration Prochlorperazine Edisylate Confirm 07/27/22 14:52 Prochlorperazine Edisylate 10 Mg/2 Ml Vial Administered 07/27/22 14:53 Dose 10 mg .ROUTE .STK-MED ONE Intake & Output (Last 24 hours) 07/26/22 07/27/22 07/28/22 10/31/22 11:59 11:59 11:59 11:59 Intake Total 1634 Output Total 900 Balance 734 Weight 74.7 kg Microbiology Results (Last 24 hours) 07/27/22 14:47 Urine, Void Urine Culture - Preliminary NO GROWTH TO DATE Laboratory Results (Last 24 hours) 07/28/22 07/28/22 07/27/22 04:40 04:40 17:40 WBC 8.7 RBC 4.82 Hgb 8.4 L Hct 30.6 L MCV 63.5 L D MCH 17.4 L MCHC 27.5 L RDW 29.6 H Plt Count 327 D MPV 8.6 Gran % 46.3 Immature Gran % (Auto) 0.3 Nucleat RBC Rel Count 0.0 Eos # (Auto) 0.43 Immature Gran # (Auto) 0.03 Absolute Lymphs (auto) 3.56 Absolute Monos (auto) 0.53 Absolute Nucleated RBC 0.00 Lymphocytes % 41.1 Monocytes % 6.1 Eosinophils % 5.0 Basophils % 1.2 Absolute Granulocytes 4.02 Basophils # 0.10 Sodium 139 Potassium 3.4 L Chloride 108 H Carbon Dioxide 25 Anion Gap 9.5 BUN 5 L Creatinine 0.79 Estimated GFR > 60.0 Glucose 80 Lactic Acid Calcium 8.3 L Magnesium Total Bilirubin 1.90 H AST 33 ALT 15 Alkaline Phosphatase 78 Troponin I Serum Total Protein 6.1 L Albumin 3.5 Urinalys Dipstick Clnc Urine Color Urine Appearance Urine pH Ur Specific [place] POC Urine Protein Conf Urine Ketones Urine Nitrite Urine Bilirubin Urine Urobilinogen Urine Leukocytes Urine WBC (Auto) Urine RBC (Auto) U Hyaline Cast (Auto) U Epithel Cells (Auto) Urine Bacteria (Auto) Urine RBC Urine Mucus (Auto) Ur Culture Indicated? Urine Glucose Urine HCG, Qual Urine Opiates Level Ur Methadone Urine Barbiturates Ur Phencyclidine (PCP) Urine Amphetamine U Benzodiazepine Level Urine Cocaine Urine Marijuana (THC) Ethyl Alcohol Influenza Type A Ag Influenza Type B Ag RSV (PCR) SARS-CoV-2 (PCR) Slides for Path Review ABO Group Rh Factor Antibody Screen Crossmatch COMPATIBLE 07/27/22 07/27/22 07/27/22 17:38 16:55 16:42 WBC RBC Hgb Hct MCV MCH MCHC RDW Plt Count MPV Gran % Immature Gran % (Auto) Nucleat RBC Rel Count Eos # (Auto) Immature Gran # (Auto) Absolute Lymphs (auto) Absolute Monos (auto) Absolute Nucleated RBC Lymphocytes % Monocytes % Eosinophils % Basophils % Absolute Granulocytes Basophils # Sodium Potassium Chloride Carbon Dioxide Anion Gap BUN Creatinine Estimated GFR Glucose Lactic Acid 2.0 Calcium Magnesium Total Bilirubin AST ALT Alkaline Phosphatase Troponin I Serum Total Protein Albumin Urinalys Dipstick Clnc Urine Color Urine Appearance Urine pH Ur Specific [place] POC Urine Protein Conf Urine Ketones Urine Nitrite Urine Bilirubin Urine Urobilinogen Urine Leukocytes Urine WBC (Auto) Urine RBC (Auto) U Hyaline Cast (Auto) U Epithel Cells (Auto) Urine Bacteria (Auto) Urine RBC Urine Mucus (Auto) Ur Culture Indicated? Urine Glucose Urine HCG, Qual Urine Opiates Level Ur Methadone Urine Barbiturates Ur Phencyclidine (PCP) Urine Amphetamine U Benzodiazepine Level Urine Cocaine Urine Marijuana (THC) Ethyl Alcohol Influenza Type A Ag NEGATIVE Influenza Type B Ag NEGATIVE RSV (PCR) NEGATIVE SARS-CoV-2 (PCR) NEGATIVE Slides for Path Review ABO Group O Rh Factor POSITIVE Antibody Screen NEGATIVE Crossmatch COMPATIBLE 07/27/22 07/27/22 07/27/22 14:47 14:47 14:47 WBC RBC Hgb Hct MCV MCH MCHC RDW Plt Count MPV Gran % Immature Gran % (Auto) Nucleat RBC Rel Count Eos # (Auto) Immature Gran # (Auto) Absolute Lymphs (auto) Absolute Monos (auto) Absolute Nucleated RBC Lymphocytes % Monocytes % Eosinophils % Basophils % Absolute Granulocytes Basophils # Sodium Potassium Chloride Carbon Dioxide Anion Gap BUN Creatinine Estimated GFR Glucose Lactic Acid Calcium Magnesium Total Bilirubin AST ALT Alkaline Phosphatase Troponin I Serum Total Protein Albumin Urinalys Dipstick Clnc MAIN LAB Urine Color YELLOW Urine Appearance CLEAR Urine pH 6.0 Ur Specific [place] 1.025 POC Urine Protein Conf NEGATIVE Urine Ketones NEGATIVE Urine Nitrite NEGATIVE Urine Bilirubin NEGATIVE Urine Urobilinogen 0.2 Urine Leukocytes NEGATIVE Urine WBC (Auto) 11-15 A Urine RBC (Auto) 0-2 U Hyaline Cast (Auto) 0-2 U Epithel Cells (Auto) RARE Urine Bacteria (Auto) NONE Urine RBC NEGATIVE Urine Mucus (Auto) SLIGHT A Ur Culture Indicated? YES Urine Glucose NEGATIVE Urine HCG, Qual NEGATIVE Urine Opiates Level NEGATIVE Ur Methadone NEGATIVE Urine Barbiturates NEGATIVE Ur Phencyclidine (PCP) NEGATIVE Urine Amphetamine NEGATIVE U Benzodiazepine Level NEGATIVE Urine Cocaine NEGATIVE Urine Marijuana (THC) NEGATIVE Ethyl Alcohol Influenza Type A Ag Influenza Type B Ag RSV (PCR) SARS-CoV-2 (PCR) Slides for Path Review ABO Group Rh Factor Antibody Screen Crossmatch 07/27/22 07/27/22 07/27/22 14:40 14:40 14:40 WBC 7.9 RBC 4.74 Hgb 7.0 L Hct 27.4 L MCV 57.8 L MCH 14.8 L MCHC 25.5 L RDW 23.2 H Plt Count 499 H MPV 9.1 Gran % 52.4 Immature Gran % (Auto) 0.4 Nucleat RBC Rel Count 0.0 Eos # (Auto) 0.36 Immature Gran # (Auto) 0.03 Absolute Lymphs (auto) 2.68 Absolute Monos (auto) 0.53 Absolute Nucleated RBC 0.00 Lymphocytes % 34.1 Monocytes % 6.7 Eosinophils % 4.6 Basophils % 1.8 Absolute Granulocytes 4.12 Basophils # 0.14 Sodium 138 Potassium 3.6 Chloride 107 Carbon Dioxide 24 Anion Gap 11.1 BUN 7 Creatinine 0.65 Estimated GFR > 60.0 Glucose 87 Lactic Acid Calcium 8.9 Magnesium 2.1 Total Bilirubin 1.00 AST 23 ALT 14 Alkaline Phosphatase 94 Troponin I < 0.012 Serum Total Protein 6.9 Albumin 4.1 Urinalys Dipstick Clnc Urine Color Urine Appearance Urine pH Ur Specific [place] POC Urine Protein Conf Urine Ketones Urine Nitrite Urine Bilirubin Urine Urobilinogen Urine Leukocytes Urine WBC (Auto) Urine RBC (Auto) U Hyaline Cast (Auto) U Epithel Cells (Auto) Urine Bacteria (Auto) Urine RBC Urine Mucus (Auto) Ur Culture Indicated? Urine Glucose Urine HCG, Qual Urine Opiates Level Ur Methadone Urine Barbiturates Ur Phencyclidine (PCP) Urine Amphetamine U Benzodiazepine Level Urine Cocaine Urine Marijuana (THC) Ethyl Alcohol < 10 Influenza Type A Ag Influenza Type B Ag RSV (PCR) SARS-CoV-2 (PCR) Slides for Path Review YES ABO Group Rh Factor Antibody Screen Crossmatch Orders (Last 24 hours) Category Date Time Status Bedrest TOLERATED Activity 07/27/22 18:29 Active Clean Catch Urine Specimen STAT Care 07/27/22 14:45 Completed EKG-ER Only STAT Care 07/27/22 14:45 Completed IV Insertion STAT Care 07/27/22 14:[address] in Observation ROUTINE Care 07/27/22 18:29 Active Telemetry q6h Care 07/27/22 18:29 Active Weight,Daily 0600 Care 07/27/22 18:29 Active Clear Liquid Diet 07/27/22 Dinner Active Discharge Routine Discharge 07/28/22 Ordered ABDOMEN AND PELVIS W/0 CONTRAS [CT] Stat Exams 07/27/22 16:21 Completed HEAD WITHOUT CONTRAST [CT] Stat Exams 07/27/22 14:45 Completed BLOOD COMPONENT REQUEST Stat Lab 07/27/22 17:38 Completed CBC W DIFF AM.LAB Lab 07/28/22 04:40 Completed CBC W DIFF Stat Lab 07/27/22 14:40 Completed CMP AM.LAB Lab 07/28/22 04:40 Completed CMP Stat Lab 07/27/22 14:40 Completed COVID/FLU/RSV Panel Stat Lab 07/27/22 17:38 Completed CULTURE,URINE Stat Lab 07/27/22 14:47 Results ETHYL ALCOHOL Stat Lab 07/27/22 14:40 Completed HCG,QUALITATIVE URINE Stat Lab 07/27/22 14:47 Completed Lactic Acid Stat Lab 07/27/22 16:42 Completed MAGNESIUM Stat Lab 07/27/22 14:40 Completed Occult Blood Stool [FECAL OCCULT BLOOD - SCREENING] Lab 07/27/22 16:20 Rece ived Stat TROPONIN Q4H Lab 07/27/22 14:40 Completed TYPE AND SCREEN Stat Lab 07/27/22 16:55 Completed UA W/RFX CULTURE Stat Lab 07/27/22 14:47 Completed Urine Triage Profile Stat Lab 07/27/22 14:47 Completed Acetaminophen 325 mg [Tylenol 325 mg] Med 07/27/22 18:29 Active 650 mg PO Q4H PRN PRN NaCl 0.9% 100 ml Mini-Bag Plus [Sodium Chloride 100ML Med 07/27/22 17:36 Discontinued MINI-BAG PLUS] 100 ml IV UD NaCl 0.9% 100 ml Mini-Bag Plus [Sodium Chloride 100ML Med 07/28/22 05:23 Discontinued MINI-BAG PLUS] 100 ml IV UD NaCl 0.9% 1000 ml [Sodium Chloride 0.9% 1000 ML] 1,000 Med 07/27/22 14:52 Discontinued ml .ROUTE UD NaCl 0.9% 1000 ml [Sodium Chloride 0.9% 1000 ML] 1,000 Med 07/27/22 18:29 Active ml IV 100 mls/hr NaCl 0.9% 1000 ml [Sodium Chloride 0.9% 1000 ML] 1,000 Med 07/27/22 14:45 Discontinued ml IV 999 mls/hr Ondansetron HCl 4 mg/2 ml [Zofran 4 MG/2 ML VIAL] Med 07/27/22 18:29 Active 4 mg IV Q6H PRN PRN Piperacillin/Tazobactam 3.375G [Piperacillin/Tazobactam Med 07/28/22 05:19 Discontinued ] 3.375 gm IV .STK-MED ONE Piperacillin/Tazobactam 3.375G [Piperacillin/Tazobactam Med 07/27/22 18:29 Active ] 3.375 gm NaCl 0.9% 100 ml Mini-Bag Plus [Sodium Chloride 100ML MINI-BAG PLUS] 100 ml IV Q6HT Piperacillin/Tazobactam Inj [Piperacillin/Tazobactam] Med 07/27/22 17:36 Discontinued 4.5 gm IV .STK-MED ONE Piperacillin/Tazobactam Inj [Piperacillin/Tazobactam] 4 Med 07/27/22 17:22 Discontinued .5 gm NaCl 0.9% 100 ml Mini-Bag Plus [Sodium Chloride 100ML MINI-BAG PLUS] 100 ml IV STAT Prochlorperazine 10 mg/2 ml [Compazine 10 MG/2 ML Med 07/27/22 14:52 Discontinued ] 10 mg .ROUTE .STK-MED ONE Prochlorperazine 10 mg/2 ml [Compazine 10 MG/2 ML Med 07/27/22 14:45 Di scontinued ] 5 mg IV STAT ONE Pulse Oximetry ROUTINE RT 07/27/22 18:29 Completed Patient Care Notes (Last 24 hours) 07/28/22 03:31 Nursing Note by Louisa Barboza 2 units PRBCs transfused. Patient tolerated well, VS remained WNL, patient reports less dizziness at this time. Initialized on 07/28/22 03:31 - END OF NOTE Last Vital Signs Temp 97.5 F 07/28/22 12:00 Pulse 87 07/28/22 12:00 Resp 17 07/28/22 12:00 BP 132/62 07/28/22 12:00 Pulse Ox 97 07/28/22 12:00 Allergies codeine Allergy (Verified 07/27/22 14:46) Sulfa (Sulfonamide Antibiotics) Allergy (Verified 07/27/22 14:46) Active Medications Acetaminophen (Acetaminophen 325 Mg Tablet) 650 mg PO Q4H PRN PRN PRN Reason: PAIN, FEVER, HEADACHE Stop: 08/26/22 18:28 Sodium Chloride (Sodium Chloride 0.9% 1000 Ml) 1,000 mls @ 100 mls/hr IV .Q10H [facility] Stop: 08/26/22 18:28 Last Admin: 07/28/22 10:01 Dose: 100 mls/hr Piperacillin Sod/Tazobactam (Sod 3.375 gm/ Sodium Chloride) 100 mls @ 200 mls/h r IV Q6HT [facility] Stop: 07/30/22 18:28 Last Admin: 07/28/22 05:40 Dose: 200 mls/hr Ondansetron HCl (Ondansetron Hcl 4 Mg/2 Ml Vial) 4 mg IV Q6H PRN PRN PRN Reason: NAUSEA/VOMITING Stop: 08/26/22 18:28 Intake & Output 07/28/22 07/29/22 11:59 11:59 Intake Total 1634 Output Total 900 Balance 734 Weight 74.7 kg Orders 07/28/22 Discharge Routine Lab Tests 07/27/22 07/27/22 07/27/22 14:40 14:40 14:40 WBC 7.9 RBC 4.74 Hgb 7.0 L Hct 27.4 L MCV 57.8 L MCH 14.8 L MCHC 25.5 L RDW 23.2 H Plt Count 499 H MPV 9.1 Gran % 52.4 Immature Gran % (Auto) 0.4 Nucleat RBC Rel Count 0.0 Eos # (Auto) 0.36 Immature Gran # (Auto) 0.03 Absolute Lymphs (auto) 2.68 Absolute Monos (auto) 0.53 Absolute Nucleated RBC 0.00 Lymphocytes % 34.1 Monocytes % 6.7 Eosinophils % 4.6 Basophils % 1.8 Absolute Granulocytes 4.12 Basophils # 0.14 Sodium 138 Potassium 3.6 Chloride 107 Carbon Dioxide 24 Anion Gap 11.1 BUN 7 Creatinine 0.65 Estimated GFR > 60.0 Glucose 87 Lactic Acid Calcium 8.9 Magnesium 2.1 Total Bilirubin 1.00 AST 23 ALT 14 Alkaline Phosphatase 94 Troponin I < 0.012 Serum Total Protein 6.9 Albumin 4.1 Urinalys Dipstick Clnc Urine Color Urine Appearance Urine pH Ur Specific [place] POC Urine Protein Conf Urine Ketones Urine Nitrite Urine Bilirubin Urine Urobilinogen Urine Leukocytes Urine WBC (Auto) Urine RBC (Auto) U Hyaline Cast (Auto) U Epithel Cells (Auto) Urine Bacteria (Auto) Urine RBC Urine Mucus (Auto) Ur Culture Indicated? Urine Glucose Urine HCG, Qual Urine Opiates Level Ur Methadone Urine Barbiturates Ur Phencyclidine (PCP) Urine Amphetamine U Benzodiazepine Level Urine Cocaine Urine Marijuana (THC) Ethyl Alcohol < 10 Influenza Type A Ag Influenza Type B Ag RSV (PCR) SARS-CoV-2 (PCR) Slides for Path Review YES ABO Group Rh Factor Antibody Screen Crossmatch 07/27/22 07/27/22 07/27/22 14:47 14:47 14:47 WBC RBC Hgb Hct MCV MCH MCHC RDW Plt Count MPV Gran % Immature Gran % (Auto) Nucleat RBC Rel Count Eos # (Auto) Immature Gran # (Auto) Absolute Lymphs (auto) Absolute Monos (auto) Absolute Nucleated RBC Lymphocytes % Monocytes % Eosinophils % Basophils % Absolute Granulocytes Basophils # Sodium Potassium Chloride Carbon Dioxide Anion Gap BUN Creatinine Estimated GFR Glucose Lactic Acid Calcium Magnesium Total Bilirubin AST ALT Alkaline Phosphatase Troponin I Serum Total Protein Albumin Urinalys Dipstick Clnc MAIN LAB Urine Color YELLOW Urine Appearance CLEAR Urine pH 6.0 Ur Specific [place] 1.025 POC Urine Protein Conf NEGATIVE Urine Ketones NEGATIVE Urine Nitrite NEGATIVE Urine Bilirubin NEGATIVE Urine Urobilinogen 0.2 Urine Leukocytes NEGATIVE Urine WBC (Auto) 11-15 A Urine RBC (Auto) 0-2 U Hyaline Cast (Auto) 0-2 U Epithel Cells (Auto) RARE Urine Bacteria (Auto) NONE Urine RBC NEGATIVE Urine Mucus (Auto) SLIGHT A Ur Culture Indicated? YES Urine Glucose NEGATIVE Urine HCG, Qual NEGATIVE Urine Opiates Level NEGATIVE Ur Methadone NEGATIVE Urine Barbiturates NEGATIVE Ur Phencyclidine (PCP) NEGATIVE Urine Amphetamine NEGATIVE U Benzodiazepine Level NEGATIVE Urine Cocaine NEGATIVE Urine Marijuana (THC) NEGATIVE Ethyl Alcohol Influenza Type A Ag Influenza Type B Ag RSV (PCR) SARS-CoV-2 (PCR) Slides for Path Review ABO Group Rh Factor Antibody Screen Crossmatch 07/27/22 07/27/22 07/27/22 16:42 16:55 17:38 WBC RBC Hgb Hct MCV MCH MCHC RDW Plt Count MPV Gran % Immature Gran % (Auto) Nucleat RBC Rel Count Eos # (Auto) Immature Gran # (Auto) Absolute Lymphs (auto) Absolute Monos (auto) Absolute Nucleated RBC Lymphocytes % Monocytes % Eosinophils % Basophils % Absolute Granulocytes Basophils # Sodium Potassium Chloride Carbon Dioxide Anion Gap BUN Creatinine Estimated GFR Glucose Lactic Acid 2.0 Calcium Magnesium Total Bilirubin AST ALT Alkaline Phosphatase Troponin I Serum Total Protein Albumin Urinalys Dipstick Clnc Urine Color Urine Appearance Urine pH Ur Specific [place] POC Urine Protein Conf Urine Ketones Urine Nitrite Urine Bilirubin Urine Urobilinogen Urine Leukocytes Urine WBC (Auto) Urine RBC (Auto) U Hyaline Cast (Auto) U Epithel Cells (Auto) Urine Bacteria (Auto) Urine RBC Urine Mucus (Auto) Ur Culture Indicated? Urine Glucose Urine HCG, Qual Urine Opiates Level Ur Methadone Urine Barbiturates Ur Phencyclidine (PCP) Urine Amphetamine U Benzodiazepine Level Urine Cocaine Urine Marijuana (THC) Ethyl Alcohol Influenza Type A Ag NEGATIVE Influenza Type B Ag NEGATIVE RSV (PCR) NEGATIVE SARS-CoV-2 (PCR) NEGATIVE Slides for Path Review ABO Group O Rh Factor POSITIVE Antibody Screen NEGATIVE Crossmatch COMPATIBLE 07/27/22 07/28/22 07/28/22 17:40 04:40 04:40 WBC 8.7 RBC 4.82 Hgb 8.4 L Hct 30.6 L MCV 63.5 L D MCH 17.4 L MCHC 27.5 L RDW 29.6 H Plt Count 327 D MPV 8.6 Gran % 46.3 Immature Gran % (Auto) 0.3 Nucleat RBC Rel Count 0.0 Eos # (Auto) 0.43 Immature Gran # (Auto) 0.03 Absolute Lymphs (auto) 3.56 Absolute Monos (auto) 0.53 Absolute Nucleated RBC 0.00 Lymphocytes % 41.1 Monocytes % 6.1 Eosinophils % 5.0 Basophils % 1.2 Absolute Granulocytes 4.02 Basophils # 0.10 Sodium 139 Potassium 3.4 L Chloride 108 H Carbon Dioxide 25 Anion Gap 9.5 BUN 5 L Creatinine 0.79 Estimated GFR > 60.0 Glucose 80 Lactic Acid Calcium 8.3 L Magnesium Total Bilirubin 1.90 H AST 33 ALT 15 Alkaline Phosphatase 78 Troponin I Serum Total Protein 6.1 L Albumin 3.5 Urinalys Dipstick Clnc Urine Color Urine Appearance Urine pH Ur Specific [place] POC Urine Protein Conf Urine Ketones Urine Nitrite Urine Bilirubin Urine Urobilinogen Urine Leukocytes Urine WBC (Auto) Urine RBC (Auto) U Hyaline Cast (Auto) U Epithel Cells (Auto) Urine Bacteria (Auto) Urine RBC Urine Mucus (Auto) Ur Culture Indicated? Urine Glucose Urine HCG, Qual Urine Opiates Level Ur Methadone Urine Barbiturates Ur Phencyclidine (PCP) Urine Amphetamine U Benzodiazepine Level Urine Cocaine Urine Marijuana (THC) Ethyl Alcohol Influenza Type A Ag Influenza Type B Ag RSV (PCR) SARS-CoV-2 (PCR) Slides for Path Review ABO Group Rh Factor Antibody Screen Crossmatch COMPATIBLE Microbiology 07/27/22 14:47 Urine, Void Urine Culture - Preliminary NO GROWTH TO DATE Patient is strongly advised to follow up with her Oncologist Dr Feranndez in [place] for further follow up for her anemia and breast cancer. - Vitals & Intake/Output Vital Signs: Vital Signs Temperature 97.5 F 07/28/22 12:00 Pulse Rate 87 07/28/22 12:00 Respiratory Rate 17 07/28/22 12:00 Blood Pressure 132/62 07/28/22 12:00 O2 Sat by Pulse Oximetry 97 07/28/22 12:00 Intake & Output: Intake & Output 07/26/22 07/27/22 07/28/22 07/29/22 11:59 11:59 11:59 11:59 Intake Total 1634 Output Total 900 Balance 734 Weight 74.7 kg - Lab Result Diagrams: 07/28/22 04:40 07/28/22 04:40 Lab Results-Last 24 Hrs: Lab Results-Last 24 Hours 07/27/22 07/27/22 07/27/22 Range/Units 14:40 14:40 14:40 WBC 7.9 (4.0-10.5) x10^3/uL RBC 4.74 (4.1-5.4) x10^6/uL Hgb 7.0 L (12.0-16.0) g/dL Hct 27.4 L (35-47) % MCV 57.8 L (78-100) fL MCH 14.8 L (26-32) pg MCHC 25.5 L (32-36) g/dL RDW 23.2 H (11.5-14.0) % Plt Count 499 H (150-450) x10^3/uL MPV 9.1 (7.5-11.0) fL Gran % 52.4 (36.0-66.0) % Immature Gran % (Auto) 0.4 (0.00-0.4) % Nucleat RBC Rel Count 0.0 (0.00-0.1) % Eos # (Auto) 0.36 (0-0.5) x10^3/uL Immature Gran # (Auto) 0.03 (0.00-0.03) x10^3u/L Absolute Lymphs (auto) 2.68 (1.0-4.6) x10^3/uL Absolute Monos (auto) 0.53 (0.0-1.3) x10^3/uL Absolute Nucleated RBC 0.00 (0.00-0.01) x10^3u/L Lymphocytes % 34.1 (24.0-44.0) % Monocytes % 6.7 (0.0-12.0) % Eosinophils % 4.6 (0.00-5.0) % Basophils % 1.8 (0.0-0.4) % Absolute Granulocytes 4.12 (1.4-6.9) x10^3/uL Basophils # 0.14 (0-0.4) x10^3/uL Sodium 138 (137-145) mmol/L Potassium 3.6 (3.5-5.1) mmol/L Chloride 107 (98-107) mmol/L Carbon Dioxide 24 (22-30) mmol/L Anion Gap 11.1 (5-15) MEQ/L BUN 7 (7-17) mg/dL Creatinine 0.65 (0.52-1.04) mg/dL Estimated GFR > 60.0 ML/MIN Glucose 87 (74-106) mg/dL Lactic Acid (0.4-2.0) Calcium 8.9 (8.4-10.2) mg/dL Magnesium 2.1 (1.6-2.3) mg/dL Total Bilirubin 1.00 (0.2-1.3) mg/dL AST 23 (14-36) U/L ALT 14 (0-35) U/L Alkaline Phosphatase 94 (38-126) U/L Troponin I < 0.012 (0.000-0.034) ng/mL Serum Total Protein 6.9 (6.3-8.2) g/dL Albumin 4.1 (3.5-5.0) g/dL Urinalys Dipstick Clnc Urine Color (YELLOW) Urine Appearance (CLEAR) Urine pH (5-6) Ur Specific [place] (1.005-1.025) POC Urine Protein Conf (Negative) Urine Ketones (NEGATIVE) Urine Nitrite (NEGATIVE) Urine Bilirubin (NEGATIVE) Urine Urobilinogen (0-1) mg/dL Urine Leukocytes (NEGATIVE) Urine WBC (Auto) (0-5) /HPF Urine RBC (Auto) (0-2) /HPF U Hyaline Cast (Auto) (0-2) /LPF U Epithel Cells (Auto) (FEW) /HPF Urine Bacteria (Auto) (NEGATIVE) /HPF Urine RBC (0-5) Jeet/ul Urine Mucus (Auto) (NEGATIVE) /HPF Ur Culture Indicated? Urine Glucose (NEGATIVE) mg/dL Urine HCG, Qual (Negative) Urine Opiates Level (NEGATIVE) Ur Methadone (NEGATIVE) Urine Barbiturates (NEGATIVE) Ur Phencyclidine (PCP) (NEGATIVE) Urine Amphetamine (NEGATIVE) U Benzodiazepine Level (NEGATIVE) Urine Cocaine (NEGATIVE) Urine Marijuana (THC) (NEGATIVE) Ethyl Alcohol < 10 (0-10) mg/dL Influenza Type A Ag (NEGATIVE) Influenza Type B Ag (NEGATIVE) RSV (PCR) (Negative) SARS-CoV-2 (PCR) (NEGATIVE) Slides for Path Review YES ABO Group Rh Factor Antibody Screen (NEGATIVE) Crossmatch (COMPATIBLE) 07/27/22 07/27/22 07/27/22 Range/Units 14:47 14:47 14:47 WBC (4.0-10.5) x10^3/uL RBC (4.1-5.4) x10^6/uL Hgb (12.0-16.0) g/dL Hct (35-47) % MCV (78-100) fL MCH (26-32) pg MCHC (32-36) g/dL RDW (11.5-14.0) % Plt Count (150-450) x10^3/uL MPV (7.5-11.0) fL Gran % (36.0-66.0) % Immature Gran % (Auto) (0.00-0.4) % Nucleat RBC Rel Count (0.00-0.1) % Eos # (Auto) (0-0.5) x10^3/uL Immature Gran # (Auto) (0.00-0.03) x10^3u/L Absolute Lymphs (auto) (1.0-4.6) x10^3/uL Absolute Monos (auto) (0.0-1.3) x10^3/uL Absolute Nucleated RBC (0.00-0.01) x10^3u/L Lymphocytes % (24.0-44.0) % Monocytes % (0.0-12.0) % Eosinophils % (0.00-5.0) % Basophils % (0.0-0.4) % Absolute Granulocytes (1.4-6.9) x10^3/uL Basophils # (0-0.4) x10^3/uL Sodium (137-145) mmol/L Potassium (3.5-5.1) mmol/L Chloride (98-107) mmol/L Carbon Dioxide (22-30) mmol/L Anion Gap (5-15) MEQ/L BUN (7-17) mg/dL Creatinine (0.52-1.04) mg/dL Estimated GFR ML/MIN Glucose (74-106) mg/dL Lactic Acid (0.4-2.0) Calcium (8.4-10.2) mg/dL Magnesium (1.6-2.3) mg/dL Total Bilirubin (0.2-1.3) mg/dL AST (14-36) U/L ALT (0-35) U/L Alkaline Phosphatase (38-126) U/L Troponin I (0.000-0.034) ng/mL Serum Total Protein (6.3-8.2) g/dL Albumin (3.5-5.0) g/dL Urinalys Dipstick Clnc MAIN LAB Urine Color YELLOW (YELLOW) Urine Appearance CLEAR (CLEAR) Urine pH 6.0 (5-6) Ur Specific [place] 1.025 (1.005-1.025) POC Urine Protein Conf NEGATIVE (Negative) Urine Ketones NEGATIVE (NEGATIVE) Urine Nitrite NEGATIVE (NEGATIVE) Urine Bilirubin NEGATIVE (NEGATIVE) Urine Urobilinogen 0.2 (0-1) mg/dL Urine Leukocytes NEGATIVE (NEGATIVE) Urine WBC (Auto) 11-15 A (0-5) /HPF Urine RBC (Auto) 0-2 (0-2) /HPF U Hyaline Cast (Auto) 0-2 (0-2) /LPF U Epithel Cells (Auto) RARE (FEW) /HPF Urine Bacteria (Auto) NONE (NEGATIVE) /HPF Urine RBC NEGATIVE (0-5) Jeet/ul Urine Mucus (Auto) SLIGHT A (NEGATIVE) /HPF Ur Culture Indicated? YES Urine Glucose NEGATIVE (NEGATIVE) mg/dL Urine HCG, Qual NEGATIVE (Negative) Urine Opiates Level NEGATIVE (NEGATIVE) Ur Methadone NEGATIVE (NEGATIVE) Urine Barbiturates NEGATIVE (NEGATIVE) Ur Phencyclidine (PCP) NEGATIVE (NEGATIVE) Urine Amphetamine NEGATIVE (NEGATIVE) U Benzodiazepine Level NEGATIVE (NEGATIVE) Urine Cocaine NEGATIVE (NEGATIVE) Urine Marijuana (THC) NEGATIVE (NEGATIVE) Ethyl Alcohol (0-10) mg/dL Influenza Type A Ag (NEGATIVE) Influenza Type B Ag (NEGATIVE) RSV (PCR) (Negative) SARS-CoV-2 (PCR) (NEGATIVE) Slides for Path Review ABO Group Rh Factor Antibody Screen (NEGATIVE) Crossmatch (COMPATIBLE) 07/27/22 07/27/22 07/27/22 Range/Units 16:42 16:55 17:38 WBC (4.0-10.5) x10^3/uL RBC (4.1-5.4) x10^6/uL Hgb (12.0-16.0) g/dL Hct (35-47) % MCV (78-100) fL MCH (26-32) pg MCHC (32-36) g/dL RDW (11.5-14.0) % Plt Count (150-450) x10^3/uL MPV (7.5-11.0) fL Gran % (36.0-66.0) % Immature Gran % (Auto) (0.00-0.4) % Nucleat RBC Rel Count (0.00-0.1) % Eos # (Auto) (0-0.5) x10^3/uL Immature Gran # (Auto) (0.00-0.03) x10^3u/L Absolute Lymphs (auto) (1.0-4.6) x10^3/uL Absolute Monos (auto) (0.0-1.3) x10^3/uL Absolute Nucleated RBC (0.00-0.01) x10^3u/L Lymphocytes % (24.0-44.0) % Monocytes % (0.0-12.0) % Eosinophils % (0.00-5.0) % Basophils % (0.0-0.4) % Absolute Granulocytes (1.4-6.9) x10^3/uL Basophils # (0-0.4) x10^3/uL Sodium (137-145) mmol/L Potassium (3.5-5.1) mmol/L Chloride (98-107) mmol/L Carbon Dioxide (22-30) mmol/L Anion Gap (5-15) MEQ/L BUN (7-17) mg/dL Creatinine (0.52-1.04) mg/dL Estimated GFR ML/MIN Glucose (74-106) mg/dL Lactic Acid 2.0 (0.4-2.0) Calcium (8.4-10.2) mg/dL Magnesium (1.6-2.3) mg/dL Total Bilirubin (0.2-1.3) mg/dL AST (14-36) U/L ALT (0-35) U/L Alkaline Phosphatase (38-126) U/L Troponin I (0.000-0.034) ng/mL Serum Total Protein (6.3-8.2) g/dL Albumin (3.5-5.0) g/dL Urinalys Dipstick Clnc Urine Color (YELLOW) Urine Appearance (CLEAR) Urine pH (5-6) Ur Specific [place] (1.005-1.025) POC Urine Protein Conf (Negative) Urine Ketones (NEGATIVE) Urine Nitrite (NEGATIVE) Urine Bilirubin (NEGATIVE) Urine Urobilinogen (0-1) mg/dL Urine Leukocytes (NEGATIVE) Urine WBC (Auto) (0-5) /HPF Urine RBC (Auto) (0-2) /HPF U Hyaline Cast (Auto) (0-2) /LPF U Epithel Cells (Auto) (FEW) /HPF Urine Bacteria (Auto) (NEGATIVE) /HPF Urine RBC (0-5) Jeet/ul Urine Mucus (Auto) (NEGATIVE) /HPF Ur Culture Indicated? Urine Glucose (NEGATIVE) mg/dL Urine HCG, Qual (Negative) Urine Opiates Level (NEGATIVE) Ur Methadone (NEGATIVE) Urine Barbiturates (NEGATIVE) Ur Phencyclidine (PCP) (NEGATIVE) Urine Amphetamine (NEGATIVE) U Benzodiazepine Level (NEGATIVE) Urine Cocaine (NEGATIVE) Urine Marijuana (THC) (NEGATIVE) Ethyl Alcohol (0-10) mg/dL Influenza Type A Ag NEGATIVE (NEGATIVE) Influenza Type B Ag NEGATIVE (NEGATIVE) RSV (PCR) NEGATIVE (Negative) SARS-CoV-2 (PCR) NEGATIVE (NEGATIVE) Slides for Path Review ABO Group O Rh Factor POSITIVE Antibody Screen NEGATIVE (NEGATIVE) Crossmatch COMPATIBLE (COMPATIBLE) 07/27/22 07/28/22 07/28/22 Range/Units 17:40 04:40 04:40 WBC 8.7 (4.0-10.5) x10^3/uL RBC 4.82 (4.1-5.4) x10^6/uL Hgb 8.4 L (12.0-16.0) g/dL Hct 30.6 L (35-47) % MCV 63.5 L D (78-100) fL MCH 17.4 L (26-32) pg MCHC 27.5 L (32-36) g/dL RDW 29.6 H (11.5-14.0) % Plt Count 327 D (150-450) x10^3/uL MPV 8.6 (7.5-11.0) fL Gran % 46.3 (36.0-66.0) % Immature Gran % (Auto) 0.3 (0.00-0.4) % Nucleat RBC Rel Count 0.0 (0.00-0.1) % Eos # (Auto) 0.43 (0-0.5) x10^3/uL Immature Gran # (Auto) 0.03 (0.00-0.03) x10^3u/L Absolute Lymphs (auto) 3.56 (1.0-4.6) x10^3/uL Absolute Monos (auto) 0.53 (0.0-1.3) x10^3/uL Absolute Nucleated RBC 0.00 (0.00-0.01) x10^3u/L Lymphocytes % 41.1 (24.0-44.0) % Monocytes % 6.1 (0.0-12.0) % Eosinophils % 5.0 (0.00-5.0) % Basophils % 1.2 (0.0-0.4) % Absolute Granulocytes 4.02 (1.4-6.9) x10^3/uL Basophils # 0.10 (0-0.4) x10^3/uL Sodium 139 (137-145) mmol/L Potassium 3.4 L (3.5-5.1) mmol/L Chloride 108 H (98-107) mmol/L Carbon Dioxide 25 (22-30) mmol/L Anion Gap 9.5 (5-15) MEQ/L BUN 5 L (7-17) mg/dL Creatinine 0.79 (0.52-1.04) mg/dL Estimated GFR > 60.0 ML/MIN Glucose 80 (74-106) mg/dL Lactic Acid (0.4-2.0) Calcium 8.3 L (8.4-10.2) mg/dL Magnesium (1.6-2.3) mg/dL Total Bilirubin 1.90 H (0.2-1.3) mg/dL AST 33 (14-36) U/L ALT 15 (0-35) U/L Alkaline Phosphatase 78 (38-126) U/L Troponin I (0.000-0.034) ng/mL Serum Total Protein 6.1 L (6.3-8.2) g/dL Albumin 3.5 (3.5-5.0) g/dL Urinalys Dipstick Clnc Urine Color (YELLOW) Urine Appearance (CLEAR) Urine pH (5-6) Ur Specific [place] (1.005-1.025) POC Urine Protein Conf (Negative) Urine Ketones (NEGATIVE) Urine Nitrite (NEGATIVE) Urine Bilirubin (NEGATIVE) Urine Urobilinogen (0-1) mg/dL Urine Leukocytes (NEGATIVE) Urine WBC (Auto) (0-5) /HPF Urine RBC (Auto) (0-2) /HPF U Hyaline Cast (Auto) (0-2) /LPF U Epithel Cells (Auto) (FEW) /HPF Urine Bacteria (Auto) (NEGATIVE) /HPF Urine RBC (0-5) Jeet/ul Urine Mucus (Auto) (NEGATIVE) /HPF Ur Culture Indicated? Urine Glucose (NEGATIVE) mg/dL Urine HCG, Qual (Negative) Urine Opiates Level (NEGATIVE) Ur Methadone (NEGATIVE) Urine Barbiturates (NEGATIVE) Ur Phencyclidine (PCP) (NEGATIVE) Urine Amphetamine (NEGATIVE) U Benzodiazepine Level (NEGATIVE) Urine Cocaine (NEGATIVE) Urine Marijuana (THC) (NEGATIVE) Ethyl Alcohol (0-10) mg/dL Influenza Type A Ag (NEGATIVE) Influenza Type B Ag (NEGATIVE) RSV (PCR) (Negative) SARS-CoV-2 (PCR) (NEGATIVE) Slides for Path Review ABO Group Rh Factor Antibody Screen (NEGATIVE) Crossmatch COMPATIBLE (COMPATIBLE) Micro Results-Entire Visit: Microbiology 07/27/22 14:47 Urine Culture - Preliminary Urine, Void NO GROWTH TO DATE - Radiology Exams Ordered Rad Exams-Entire Visit: Radiology Procedures Category Date Time Status ABDOMEN AND PELVIS W/0 CONTRAS [CT] Stat Exams 07/27/22 16:21 Completed HEAD WITHOUT CONTRAST [CT] Stat Exams 07/27/22 14:45 Completed - Discharge Discharge Date: 07/28/22 Disposition: Home, Self-Care Condition: Stable Prescriptions: New Acetaminophen 325 mg [Tylenol 325 mg] 650 mg PO Q4H PRN PRN tablet PRN Reason: Pain, Fever, Headache Instructions: Anemia Caused by Low Iron, Adult (DC) Additional Instructions: Follow up with your breast cancer DrJoseph Follow up with: PHYLICIA LEVI MD [ACTIVE STAFF] - 5 Days Forms: Discharge Instructions
[2022-07-28 14:06] LABS: Slide Review 1 YES
== END 2022-07-28 12:38 | disposition home or self-care (01) ==
LOC: ED 14:08 → MED SURG 18:27
PROVIDERS: ADMIT General Practice; ATTEND General Practice
DX: D64.9 Anemia, unspecified (principal); K52.9 Noninfective gastroenteritis and colitis, unspecified; Z72.0 Tobacco use; Z79.899 Other long term (current) drug therapy; Z20.828 Contact with and (suspected) exposure to other viral communicable diseases; Z85.3 Personal history of malignant neoplasm of breast
CPT/HCPCS: 0241U; 36000; 36415; 70450; 74176; 80053; 80307; 81015; 81025; 82274; 83605; 83735; 84484; 85025; 86850; 86900; 86901; 86922; 87086; 93005; 96374; 99285; 99291; P9016; 36430; 93268; J2543; G0328; G0378; G0480

== ENCOUNTER 2022-08-27 19:10 | Emergency (ER) | payer MEDICAID ==
[2022-08-27 20:04] VITALS: BP 115/58; PULSE 94; O2SAT 99
[2022-08-27] MEDS ORDERED: Vibramycin 100 MG PO ONE (20:40)
--- NOTE | 2022-08-27 20:40 | ERPHSYRPT ---
- History of Present Illness Time Seen by Provider: 08/27/22 20:40 Source: patient Exam Limitations: no limitations Patient Subjective Stated Complaint: pt states she has been having pain in her face, under her rt nare for the last week has been worse the last 3-[address] [facility] is very tender to touch and the roof of her mouth is tender as well Triage Nursing Assessment: pt alert and oriented, answers questions approp. pt ambulatory with steady gait noted. respirations nonlabored. skin warm and dry. pt reports tenderness to face under rt nare. no redness or open area noted. Physician History: 36-year-old female presents to our ED with a 3 to 4-day history of progressive swelling of her right nasolabial fold. The area is tender. Mild erythema. Appears to be a abscess. No fever. No trauma. No other complaints. Patient took ibuprofen prior to arrival. Patient plan additional pain medication. Patient denies the possibility of . Significant other at bedside. They voiced no other complaints or concerns at this time. Portions of this note were created with voice recognition technology. There may be grammatical, spelling, punctuation or sound alike errors Timing/Duration: day(s) (3 to 4 days) Severity: moderate Modifying Factors: Improves With: nothing Associated Symptoms: denies symptoms Allergies/Adverse Reactions: codeine Allergy (Verified 08/27/22 20:04) Sulfa (Sulfonamide Antibiotics) Allergy (Verified 08/27/22 20:04) Hx Tetanus, Diphtheria Vaccination/Date Given: No Hx Influenza Vaccination/Date Given: No Hx Pneumococcal Vaccination/Date Given: No Immunizations Up to Date: No Travel Risk - International Travel Have you traveled outside of the country in past 3 weeks: No - Coronavirus Screening Are you exhibiting any of the following symptoms?: No Close contact with a COVID-19 positive Pt in past 14-21 Days: No - Vaccine Status Have you recieved a Covid-19 vaccination: No - Review of Systems Constitutional: No Symptoms, No Fever, No Chills Eyes: No Symptoms Ears, Nose, & Throat: No Symptoms Respiratory: No Symptoms, No Cough, No Dyspnea Cardiac: No Symptoms, No Chest Pain, No Edema, No Syncope Abdominal/Gastrointestinal: No Symptoms, No Abdominal Pain, No Nausea, No Vomiting, No Diarrhea Genitourinary Symptoms: No Symptoms, No Dysuria Musculoskeletal: No Symptoms, No Back Pain, No Neck Pain Skin: No Symptoms, No Rash Neurological: No Symptoms, No Dizziness, No Focal Weakness, No Sensory Changes Psychological: No Symptoms Endocrine: No Symptoms Hematologic/Lymphatic: No Symptoms Immunological/Allergic: No Symptoms All Other Systems: Reviewed and Negative - Past Medical History Pertinent Past Medical History: Yes Female Reproductive Disorders: Breast Cancer Other Medical History: bilat mastectomy for breast cancer and lymph removal on the right. anemia - Past Surgical History Past Surgical History: Yes Gastrointestinal: Appendectomy, Cholecystectomy Female Surgical History: Mastectomy Other Surgical History: bilat mastectomy with reconstruction - Social History Smoking Status: Current every day smoker How long have you smoked: 18 yrs Exposure to second hand smoke: Yes Drug Use: none Patient Lives Alone: No - Female History Hx Last Menstrual Period: last week Hx Now: No - Nursing Vital Signs Nursing Vital Signs: Initial Vital Signs Temperature 98.9 F 08/27/22 19:56 Pulse Rate 94 H 08/27/22 19:56 Respiratory Rate 16 08/27/22 19:56 Blood Pressure 115/58 08/27/22 19:56 O2 Sat by Pulse Oximetry 99 08/27/22 19:56 Pain Scale Pain Intensity 8 - Physical Exam General Appearance: no apparent distress, alert, other (Right nasolabial fold abscess formation. Area is tender mild erythema. No alton cellulitis at this time. No fluctuance. No indication for drainage at this time) Eye Exam: PERRL/EOMI, eyes nml inspection Ears, Nose, Throat Exam: normal ENT inspection, TMs normal, pharynx normal, moist mucous membranes, other (Abscess formation at the right nasolabial fold.) Neck Exam: normal inspection, non-tender, supple, full range of motion Respiratory Exam: normal breath sounds, lungs clear, No respiratory distress Cardiovascular Exam: regular rate/rhythm, normal heart sounds, normal peripheral pulses Gastrointestinal/Abdomen Exam: soft, normal bowel sounds, No tenderness, No mass Back Exam: normal inspection, normal range of motion, No CVA tenderness, No vertebral tenderness Extremity Exam: normal inspection, normal range of motion, pelvis stable Neurologic Exam: alert, oriented x 3, cooperative, normal mood/affect, nml cerebellar function, nml station & gait, sensation nml, No motor deficits Skin Exam: normal color, warm, dry, No rash Lymphatic Exam: No adenopathy SpO2 Interpretation: normal SpO2: 99 O2 Delivery: Room Air - Course Nursing assessment & vital signs reviewed: Yes - Progress Progress: improved Progress Note: Patient reassessed. She is comfortable. Patient declined pain medication. Patient received a dose of doxycycline in our ED. He prescription for the same was forwarded to patient's pharmacy. Patient currently has an appointment with Dr. Levi scheduled for September 05. Patient voices no other complaints or concerns at this time. Portions of this note were created with voice recognition technology. There may be grammatical, spelling, punctuation or sound alike errors 08/27/22 20:43 Counseled pt/family regarding: diagnosis, need for follow-up - Departure Departure Disposition: Home Clinical Impression: Abscess Condition: Stable Critical Care Time: No Referrals: DOCTOR,NO FAMILY [Primary Care Provider] - Follow up/PCP as directed PHYLICIA LEVI MD [ACTIVE STAFF] - Follow up/PCP as directed Additional Instructions: Discharge/Care Plan TRICE RICKS was seen on 08/27/22 in the Emergency Room. The patient was counseled regarding Diagnosis,Lab results, Imaging studies, need for follow up and when to return to the Emergency Room. Prescriptions given: Discharge Note I have spoken with the patient and/or caregivers. I have explained the patient's condition, diagnosis and treatment plan based on the information available to me at this time. I have answered the patient's and/or caregiver's questions and addressed any concerns. The patient and/or caregivers have as good understanding of the patient's diagnosis, condition and treatment plan as can be expected at this point. The vital signs have been stable. The patient's condition is stable and appropriate for discharge from the emergency department. The patient will pursue further outpatient evaluation with the primary care physician or other designated or consulting physician as outlined in the discharge instructions. The patient and/or caregivers are agreeable to this plan of care and follow-up instructions have been explained in detail. The patient and/or caregivers have received these instruction. The patient/and or caregivers are aware that any significant change in condition or worsening of symptoms should prompt an immediate return to this or the closest emergency department or call 911. Prescriptions: Doxycycline Hyclate 100 mg [Vibramycin 100 MG] 100 mg PO BID #14 tab
[2022-08-27] MEDS ORDERED: Vibramycin 100 MG ONE (20:45)
== END 2022-08-27 20:52 | disposition home or self-care (01) ==
LOC: ED 19:10
DX: J34.0 Abscess, furuncle and carbuncle of nose (principal); Z28.310 Unvaccinated for COVID-19; Z72.0 Tobacco use
CPT/HCPCS: 99281; A9270-GY

== ENCOUNTER 2023-08-15 19:37 | Emergency (ER) | payer MEDICAID ==
[2023-08-15 19:59] VITALS: TEMP 96.8
[2023-08-15 20:15] LABS: Absolute Neutrophil Ct (ANC) 4.93 x10^3/uL (1.4-6.9); BASOPHIL % 1.1 % (0.0-0.4); Eosinophil % 4.8 % (0.00-5.0); Eosinophil (Absolute #) 0.42 x10^3/uL (0-0.5); Hematocrit 42.4 % (35-47); Hemoglobin 13.7 g/dL (12.0-16.0); IMMATURE GRAN # 0.03 x10^3u/L (0.00-0.03); IMMATURE GRAN % 0.3 % (0.00-0.4); Lymphocyte (Absolute #) 2.67 x10^3/uL (1.0-4.6); Lymphocytes % 30.5 % (24.0-44.0); Mean Cell Volume 87.8 fL (78-100); Mean Corpuscular Hemoglobin 28.4 pg (26-32); Mean Corpuscular Hgb Concent. 32.3 g/dL (32-36); Mean Platelet Volume 9.2 fL (7.5-11.0); Monocytes % 6.9 % (0.0-12.0); Neutrophil % 56.4 % (36.0-66.0); Platelet Count 340 x10^3/uL (150-450); Red Blood Count 4.83 x10^6/uL (4.1-5.4); Red Cell Distribution Width 14.8 % (11.5-14.0); White Blood Count 8.8 x10^3/uL (4.0-10.5)
--- NOTE | 2023-08-15 20:22 | ERPHSYRPT ---
- History of Present Illness Source: patient, other (Spouse) Exam Limitations: no limitations Patient Subjective Stated Complaint: pt states that she has had dizziness since friday Triage Nursing Assessment: pt ambulated into the er; pt is axo x4; c/o dizziness; c/o headache; c/o nausea; pupils 3 mm and PERRL; strong cameron sample tester; strong cameron pedal pushes; skin PDW; no respiratory distress present; vitals wnl Physician History: Patient is a 37-year-old female with dizziness intermittently x4 days. Patient denies otalgia, ringing in ears, or roaring in ears. Dizziness is worse when she goes from sitting to standing position. Patient states she has a history of anemia of unknown etiology and had to get a transfusion in the past. Patient also has a history of breast cancer with bilateral mastectomy. She received tamoxifen after her surgeries but no chemotherapy or radiation. Patient states she has a mild frontal headache which she rates at 3 out of 10. Pain is dull nothing seems make it better or worse. She had some nausea without vomiting. She denies at this time. Patient also denies chest pain, , dyspnea, cough, coryza, and fever. There is no focal weakness and patient is neurologically intact. Timing/Duration: other (Intermittently for 4 days) Severity: mild Modifying Factors: Improves With: other (Worse when going from sitting to standing position.) Associated Symptoms: denies symptoms Allergies/Adverse Reactions: codeine Allergy (Verified 08/15/23 19:44) Sulfa (Sulfonamide Antibiotics) Allergy (Verified 08/15/23 19:44) Home Medications: Iron 18 mg PO DAILY 08/15/23 [History] Hx Tetanus, Diphtheria Vaccination/Date Given: No Hx Influenza Vaccination/Date Given: No Hx Pneumococcal Vaccination/Date Given: No Travel Risk - International Travel Have you traveled outside of the country in past 3 weeks: No - Coronavirus Screening Are you exhibiting any of the following symptoms?: No Close contact with a COVID-19 positive Pt in past 14-21 Days: No - Vaccine Status Have you recieved a Covid-19 vaccination: No - Review of Systems Constitutional: No Symptoms Eyes: No Symptoms Ears, Nose, & Throat: No Symptoms Respiratory: No Symptoms Cardiac: No Symptoms Abdominal/Gastrointestinal: No Symptoms Genitourinary Symptoms: No Symptoms Musculoskeletal: No Symptoms Skin: No Symptoms Neurological: Dizziness Psychological: No Symptoms Endocrine: No Symptoms Hematologic/Lymphatic: No Symptoms Immunological/Allergic: No Symptoms - Past Medical History Pertinent Past Medical History: Yes Cardiac History: Other Female Reproductive Disorders: Breast Cancer Other Medical History: bilat mastectomy for breast cancer and lymph removal on the right. anemia - Past Surgical History Past Surgical History: Yes Gastrointestinal: Appendectomy, Cholecystectomy Female Surgical History: Mastectomy Other Surgical History: bilat mastectomy with reconstruction - Social History Smoking Status: Current every day smoker How long have you smoked: 18 yrs Exposure to second hand smoke: Yes Drug Use: none Patient Lives Alone: No - Female History Hx Now: No - Nursing Vital Signs Nursing Vital Signs: Initial Vital Signs Temperature 96.8 F 08/15/23 19:46 Pulse Rate 79 08/15/23 19:46 Respiratory Rate 18 08/15/23 19:46 Blood Pressure 123/56 08/15/23 19:46 O2 Sat by Pulse Oximetry 100 08/15/23 19:46 Pain Scale Pain Intensity 0 Within normal limits - Physical Exam General Appearance: no apparent distress Eye Exam: PERRL/EOMI, eyes nml inspection Ears, Nose, Throat Exam: normal ENT inspection, TMs normal, pharynx normal, moist mucous membranes Neck Exam: normal inspection, non-tender, supple, full range of motion, No meningismus, No mass, No Brudzinski, No Kernig's, No carotid bruit Respiratory Exam: normal breath sounds, lungs clear, airway intact, No respiratory distress Cardiovascular Exam: regular rate/rhythm, normal heart sounds, normal peripheral pulses, capillary refill <2 sec, No murmur Gastrointestinal/Abdomen Exam: soft, normal bowel sounds, No tenderness Back Exam: normal inspection, normal range of motion, No CVA tenderness, No vertebral tenderness Extremity Exam: normal inspection, normal range of motion Neurologic Exam: alert, oriented x 3, cooperative, tool hardener II-XII nml as tested, normal mood/affect, nml cerebellar function, nml station & gait, sensation nml, No motor deficits, No sensory deficit Skin Exam: normal color, warm, dry Lymphatic Exam: No adenopathy SpO2 Interpretation: normal SpO2: 100 O2 Delivery: Room Air - Course Nursing assessment & vital signs reviewed: Yes EKG Interpreted by Me: RATE (Normal sinus rhythm/rate 70/normal QT-QTc/normal limit T waves/no acute ST segment changes/normal limit P waves/) - CT Exams Head CT Interpretation: Discussed w/radiologist (CT head negative per Dr. Ann.) Ordered Tests: Active Orders 24 hr Category Date Time Status Environmental Health Manager STAT Care 08/15/23 20:09 Active EKG-ER Only STAT Care 08/15/23 20:07 Active IV Insertion STAT Care 08/15/23 19:56 Active HEAD WITHOUT CONTRAST [CT] Stat Exams 08/15/23 20:08 Taken CBC W DIFF Stat Lab 08/15/23 20:07 Completed CMP Stat Lab 08/15/23 20:00 Completed HCG QUALITATIVE, SERUM Stat Lab 08/15/23 20:00 Completed PROTIME WITH INR Stat Lab 08/15/23 20:00 Completed PTT Stat Lab 08/15/23 20:00 Completed TROPONIN Q4H Lab 08/15/23 20:00 Completed TROPONIN Q4H Lab 08/16/23 00:15 Ordered TROPONIN Q4H Lab 08/16/23 04:15 Ordered UA W/RFX UR CULTURE Stat Lab 08/15/23 20:09 Completed Medication Summary Discontinued Medications Generic Name Dose Route Start Last Admin Trade Name Freq PRN Reason Stop Dose Admin Meclizine HCl 25 mg 08/15/23 21:22 08/15/23 21:23 Meclizine Hcl 25 Mg Tablet PO 08/15/23 21:23 25 mg STAT ONE Administration Meclizine HCl Confirm 08/15/23 21:22 Meclizine Hcl 25 Mg Tablet Administered 08/15/23 21:23 Dose 25 mg .ROUTE .STK-MED ONE Lab/Rad Data: Laboratory Result Diagrams 08/15/23 20:07 08/15/23 20:00 Laboratory Results 08/15/23 08/15/23 08/15/23 Range/Units 20:09 20:07 20:00 WBC 8.8 (4.0-10.5) x10^3/uL RBC 4.83 (4.1-5.4) x10^6/uL Hgb 13.7 (12.0-16.0) g/dL Hct 42.4 (35-47) % MCV 87.8 (78-100) fL MCH 28.4 (26-32) pg MCHC 32.3 (32-36) g/dL RDW 14.8 H (11.5-14.0) % Plt Count 340 (150-450) x10^3/uL MPV 9.2 (7.5-11.0) fL Gran % 56.4 (36.0-66.0) % Immature Gran % (Auto) 0.3 (0.00-0.4) % Nucleat RBC Rel Count 0.0 (0.00-0.1) % Eos # (Auto) 0.42 (0-0.5) x10^3/uL Immature Gran # (Auto) 0.03 (0.00-0.03) x10^3u/L Absolute Lymphs (auto) 2.67 (1.0-4.6) x10^3/uL Absolute Monos (auto) 0.60 (0.0-1.3) x10^3/uL Absolute Nucleated RBC 0.00 (0.00-0.01) x10^3u/L Lymphocytes % 30.5 (24.0-44.0) % Monocytes % 6.9 (0.0-12.0) % Eosinophils % 4.8 (0.00-5.0) % Basophils % 1.1 (0.0-0.4) % Absolute Granulocytes 4.93 (1.4-6.9) x10^3/uL Basophils # 0.10 (0-0.4) x10^3/uL PT (9.4-12.5) SECONDS INR (0.8-3.0) APTT (25.1-36.5) SECONDS Sodium (137-145) mmol/L Potassium (3.5-5.1) mmol/L Chloride (98-107) mmol/L Carbon Dioxide (22-30) mmol/L Anion Gap (5-15) MEQ/L BUN (7-17) mg/dL Creatinine (0.52-1.04) mg/dL Estimated GFR ML/MIN Glucose (74-106) mg/dL Calcium (8.4-10.2) mg/dL Total Bilirubin (0.2-1.3) mg/dL AST (14-36) U/L ALT (0-35) U/L Alkaline Phosphatase (38-126) U/L Troponin I (0.000-0.034) ng/mL Serum Total Protein (6.3-8.2) g/dL Albumin (3.5-5.0) g/dL Serum HCG, Qual NEGATIVE (NEGATIVE) Urine Color Yellow (Yellow) Urine Appearance Clear (Clear) Urine pH 6.0 (4.6-8.0) Ur Specific [place] <=1.005 (1.005-1.030) Urine Protein Negative (Negative) Urine Glucose (UA) Negative (Negative) mg/dL Urine Ketones Negative (Negative) Urine Blood Trace (Negative) Urine Nitrite Negative (Negative) Urine Bilirubin Negative (Negative) Urine Urobilinogen 0.2 (0.2) mg/dL Ur Leukocyte Esterase Negative (Negative) U Hyaline Cast (Auto) NONE SEEN (0-2) /LPF Urine Microscopic RBC 0-2 (0-5) /HPF Urine Microscopic WBC 0-2 (0-5) /HPF Ur Epithelial Cells None Seen (None Seen) /HPF Urine Bacteria None Seen (None Seen) /HPF Urine Culture Reflexed NO (NO) 08/15/23 08/15/23 08/15/23 Range/Units 20:00 20:00 20:00 WBC (4.0-10.5) x10^3/uL RBC (4.1-5.4) x10^6/uL Hgb (12.0-16.0) g/dL Hct (35-47) % MCV (78-100) fL MCH (26-32) pg MCHC (32-36) g/dL RDW (11.5-14.0) % Plt Count (150-450) x10^3/uL MPV (7.5-11.0) fL Gran % (36.0-66.0) % Immature Gran % (Auto) (0.00-0.4) % Nucleat RBC Rel Count (0.00-0.1) % Eos # (Auto) (0-0.5) x10^3/uL Immature Gran # (Auto) (0.00-0.03) x10^3u/L Absolute Lymphs (auto) (1.0-4.6) x10^3/uL Absolute Monos (auto) (0.0-1.3) x10^3/uL Absolute Nucleated RBC (0.00-0.01) x10^3u/L Lymphocytes % (24.0-44.0) % Monocytes % (0.0-12.0) % Eosinophils % (0.00-5.0) % Basophils % (0.0-0.4) % Absolute Granulocytes (1.4-6.9) x10^3/uL Basophils # (0-0.4) x10^3/uL PT 10.1 (9.4-12.5) SECONDS INR 0.92 (0.8-3.0) APTT 28.2 (25.1-36.5) SECONDS Sodium 136 L (137-145) mmol/L Potassium 3.9 (3.5-5.1) mmol/L Chloride 104 (98-107) mmol/L Carbon Dioxide 23 (22-30) mmol/L Anion Gap 12.7 (5-15) MEQ/L BUN 7 (7-17) mg/dL Creatinine 0.64 (0.52-1.04) mg/dL Estimated GFR 116.7 ML/MIN Glucose 110 H (74-106) mg/dL Calcium 9.0 (8.4-10.2) mg/dL Total Bilirubin 0.60 (0.2-1.3) mg/dL AST 19 (14-36) U/L ALT 13 (0-35) U/L Alkaline Phosphatase 73 (38-126) U/L Troponin I < 0.012 (0.000-0.034) ng/mL Serum Total Protein 7.3 (6.3-8.2) g/dL Albumin 4.3 (3.5-5.0) g/dL Serum HCG, Qual (NEGATIVE) Urine Color (Yellow) Urine Appearance (Clear) Urine pH (4.6-8.0) Ur Specific [place] (1.005-1.030) Urine Protein (Negative) Urine Glucose (UA) (Negative) mg/dL Urine Ketones (Negative) Urine Blood (Negative) Urine Nitrite (Negative) Urine Bilirubin (Negative) Urine Urobilinogen (0.2) mg/dL Ur Leukocyte Esterase (Negative) U Hyaline Cast (Auto) (0-2) /LPF Urine Microscopic RBC (0-5) /HPF Urine Microscopic WBC (0-5) /HPF Ur Epithelial Cells (None Seen) /HPF Urine Bacteria (None Seen) /HPF Urine Culture Reflexed (NO) - Progress Progress Note: 08/15/23 21:33 Nursing note and vital signs reviewed. No food or housing insecurities noted. All lab results reviewed and shared with patient. CT head result reviewed and shared with patient. Patient in no apparent distress during entire visit with serial normal neuro exams. Patient able to walk without difficulty, finger-nose test within normal limits, and no focal weakness noted. Most likely cause of patient's dizziness is vertigo at this time. Patient will treated with meclizine 25 mg p.o. every 6 hours as needed. 25 mg p.o. meclizine administered before patient discharge. Vital signs stable throughout entire ER stay. Counseled pt/family regarding: lab results, diagnosis, rad results Medical Desision Making - Independent Historian Additional History obtained from: Spouse - Diagnostic Testing Diagnostic test were ordered, analyzed, and reviewed by me: Yes Radiological Interpretation: Reviewed by me - Risk of complications The pt has a mod risk of morbidity or mortality based on: Need for prescription drug management - Departure Departure Disposition: Home Clinical Impression: Vertigo Condition: Stable Critical Care Time: No Referrals: PHYLICIA LEVI MD [Primary Care Provider] - Follow up/PCP as directed Instructions: Vertigo (a Type of Dizziness) (DC) Additional Instructions: Meclizine as needed for dizziness. Follow-up with your family MD. Return to ER for worsening dizziness, focal weakness, or ear pain. Prescriptions: Meclizine HCl 25 mg [Antivert 25 mg] 25 mg PO Q6HPRN PRN #15 tablet PRN Reason: Dizziness
[2023-08-15 20:23] LABS: ALBUMIN 4.3 g/dL (3.5-5.0); ANION GAP 12.7 MEQ/L (5-15); BILIRUBIN,TOTAL 0.6 mg/dL (0.2-1.3); Creatinine 1 0.64 mg/dL (0.52-1.04); EST GLOMERULAR FILTRATION RATE 116.7 ML/MIN; Potassium 3.9 mmol/L (3.5-5.1); Total Protein 7.3 g/dL (6.3-8.2)
[2023-08-15 20:24] LABS: HCG SERUM TEST NEGATIVE (NEGATIVE)
[2023-08-15 20:24] LABS: ADD URINE CULTURE? NO (NO); Appearance Clear (Clear); Bacteria None Seen /HPF (None Seen); Bilirubin Negative (Negative); Blood Trace (Negative); Epithelial Cells None Seen /HPF (None Seen); Glucose, Urine Negative (Negative); Hyaline Casts NONE SEEN /LPF (0-2); Ketones Negative (Negative); Leukocyte Esterase Negative (Negative); Nitrite Negative (Negative); Protein,Urine Dip Negative (Negative); RBC 0-2 /HPF (0-5); Specific Gravity <=1.005 (1.005-1.030); Urobilinogen 0.2 mg/dL (0.2); WBC 0-2 /HPF (0-5)
[2023-08-15 20:25] LABS: INR 0.92 (0.8-3.0); PROTIME 10.1 SECONDS (9.4-12.5); PTT 28.2 SECONDS (25.1-36.5)
[2023-08-15] MEDS ORDERED: ANTIVERT 25 MG ONE (21:22)
[2023-08-15] MEDS ORDERED: ANTIVERT 25 MG PO ONE (21:22)
[2023-08-15 21:27] VITALS: BP 126/64; PULSE 80; RESP 16
[2023-08-15 21:35] VITALS: O2SAT 100
--- NOTE | 2023-08-16 08:05 | XRAY ---
Indication: Headache and dizziness. Multiple contiguous axial images obtained through the head without contrast. Comparison: July 17, 2022 Normal appearing brain parenchyma, ventricles, and bony calvarium. Again 1.8 cm left maxillary sinus polyp/retention cyst. Remaining visualized paranasal sinuses and mastoid air cells are clear. Impression: Continued normal CT head without contrast exam with incidental left maxillary sinus polyp/retention cyst.
== END 2023-08-15 21:35 | disposition home or self-care (01) ==
LOC: ED 19:37
DX: R42 Dizziness and giddiness (principal); R51.9 Headache, unspecified; R11.0 Nausea; Z79.899 Other long term (current) drug therapy; Z28.310 Unvaccinated for COVID-19; Z72.0 Tobacco use
CPT/HCPCS: 36000; 36415; 70450; 80053; 81001; 84484; 84703; 85025; 85610; 85730; 93005; 93041; 99284; A9270-GY

== ENCOUNTER 2023-08-23 18:58 | Emergency (ER) | payer MEDICAID ==
[2023-08-23 19:07] VITALS: TEMP 97.1
--- NOTE | 2023-08-23 19:12 | ERPHSYRPT ---
- History of Present Illness Time Seen by Provider: 08/23/23 19:06 Historian: patient, family, EMS Exam Limitations: no limitations Patient Subjective Stated Complaint: Pt states "I was at work and I had pain in my chest and left arm then I got nauseated. I am not in any pain right now." Triage Nursing Assessment: Pt presented alert and oriented X3, skin pwd. Pt ambulates with an upright steady gait, able to speak in clear full sentences. PT in no apparent respiratory distress. Physician History: pt was brought by EMS at request of [facility] due to about 2 hours of intermittent sharp central CP with nausea, and radiating to Left arm. No Hx Ht Dx or Hptn or DM. Smoker. No family Hx for Ht Dx. Pain resolved prior to arrival in ER. No abd pain, some GI/GERD hx. Hx notable for Breast Cancer Tx bilaterla mast Neg nodes, finished 3 yrs Proph Tamoxofin 1 yr ago. No Hx DVT or PE. No current blood thinner or hormonal Tx. No SOBreath. Hx confirmed by independent source of EMS and fiance present in ER> Discussed risks/benefits of testing and Tx with pt ( CBC, CMP, CXR, EKG, Trop BNP, D Dimer, amylase, lipase, HCG, Anacid, ASA, H alayna Prot pump inhib, ) and she wishes to proceed. These are ordered. Results discussed with pt. Calculated Heart score of 3 or less: 0 for age, 1 for moderately suspicious symptoms. 1 for risk factors as smoker but no others. 1 for EKG. Trop Pt reports unrelated right wrist chronic repetitive motion at work with pain after usage with ext/flexion - no hx direct trauma or fall. No swelling or redness or karin tenderness. She is advised to f/u PMD, use ice, continue with splint. Tylenol. Return if redness or increased pain meantime. We discussed potential use of steroids but she has sensitive stomach and agrees best to go conservative and hold off for now. Timing/Duration: today Activities at Onset: other (working ) Quality: sharpness, stabbing Location: central Chest Pain Radiation: arm Severity of Pain-Max: moderate Severity of Pain-Current: none Modifying Factors: Improves With: nothing Associated Symptoms: nausea Prior Chest Pain/Cardiac Workup: no prior chest pain Nitro Today/Relief: no nitro taken today Aspirin Treatment Today: 81 mg x 4 Allergies/Adverse Reactions: codeine Allergy (Verified 08/15/23 19:44) Sulfa (Sulfonamide Antibiotics) Allergy (Verified 08/15/23 19:44) Home Medications: Iron 18 mg PO DAILY 08/15/23 [History] Hx Tetanus, Diphtheria Vaccination/Date Given: No Hx Influenza Vaccination/Date Given: No Hx Pneumococcal Vaccination/Date Given: No Immunizations Up to Date: No Travel Risk - International Travel Have you traveled outside of the country in past 3 weeks: No - Coronavirus Screening Are you exhibiting any of the following symptoms?: No Close contact with a COVID-19 positive Pt in past 14-21 Days: No - Vaccine Status Have you recieved a Covid-19 vaccination: No - Review of Systems Constitutional: No Fever, No Chills Eyes: No Symptoms Ears, Nose, & Throat: No Symptoms Respiratory: No Cough, No Dyspnea Cardiac: Chest Pain (resolved [prior to arrival), No Edema, No Syncope Abdominal/Gastrointestinal: Nausea, No Abdominal Pain, No Vomiting, No Diarrhea Genitourinary Symptoms: No Dysuria Musculoskeletal: No Back Pain, No Neck Pain Skin: No Rash Neurological: No Dizziness, No Focal Weakness, No Sensory Changes Psychological: No Symptoms Endocrine: No Symptoms Hematologic/Lymphatic: No Symptoms Immunological/Allergic: No Symptoms All Other Systems: Reviewed and Negative - Past Medical History Pertinent Past Medical History: Yes Cardiac History: Other Female Reproductive Disorders: Breast Cancer Other Medical History: bilat mastectomy for breast cancer and lymph removal on the right. anemia - Past Surgical History Past Surgical History: Yes Gastrointestinal: Appendectomy, Cholecystectomy Female Surgical History: Mastectomy Other Surgical History: bilat mastectomy with reconstruction - Social History Smoking Status: Current every day smoker How long have you smoked: 18 yrs Exposure to second hand smoke: Yes Drug Use: none Patient Lives Alone: No - Female History Hx Last Menstrual Period: 08/13/2023 Hx Now: No - Nursing Vital Signs Nursing Vital Signs: Initial Vital Signs Temperature 97.1 F 08/23/23 19:02 Pulse Rate 68 08/23/23 19:02 Respiratory Rate 20 08/23/23 19:02 Blood Pressure 129/76 08/23/23 19:02 O2 Sat by Pulse Oximetry 98 08/23/23 19:02 Pain Scale Pain Intensity 0 - Physical Exam General Appearance: no apparent distress, alert Eye Exam: PERRL/EOMI, eyes nml inspection Ears, Nose, Throat Exam: normal ENT inspection, moist mucous membranes Neck Exam: normal inspection, non-tender, supple, full range of motion Respiratory Exam: normal breath sounds, lungs clear, No respiratory distress Cardiovascular Exam: regular rate/rhythm, normal heart sounds Gastrointestinal/Abdomen Exam: soft, No tenderness, No mass Pelvic Exam: deferred Rectal Exam: deferred Back Exam: normal inspection, No CVA tenderness, No vertebral tenderness Extremity Exam: normal inspection, normal range of motion, tenderness (tender right wrist extensors with ROM- chronic repetitive work) Neurologic Exam: alert, oriented x 3, cooperative, normal mood/affect, sensation nml, No motor deficits Skin Exam: normal color, warm, dry SpO2 Interpretation: normal SpO2: 98 O2 Delivery: Room Air - Course Nursing assessment & vital signs reviewed: Yes EKG Interpreted by Me: Sinus Rhythm, Left Panhandle Deviation, NORMAL INTERVALS, NORMAL QRS, Non-specific ST Changes - Radiology Exams Chest X-ray Interpretation: Reviewed by me (await rad review with breast CA Hx, no definate infilts, some granulomat and fibrosis.) Ordered Tests: Active Orders 24 hr Category Date Time Status Manager Purchasing STAT Care 08/23/23 19:18 Active EKG-ER Only STAT Care 08/23/23 19:16 Active IV Insertion STAT Care 08/23/23 19:16 Active CHEST 1 VIEW (PORTABLE) Stat Exams 08/23/23 19:17 Taken AMYLASE Stat Lab 08/23/23 19:35 Completed CBC W DIFF Stat Lab 08/23/23 19:35 Completed CMP Stat Lab 08/23/23 19:35 Completed D-DIMER QUANTITATIVE Stat Lab 08/23/23 19:35 Completed HCG QUALITATIVE, SERUM Stat Lab 08/23/23 19:45 Completed LIPASE Stat Lab 08/23/23 19:35 Completed Lactic Acid Stat Lab 08/23/23 19:35 Completed NT PRO BNPII Stat Lab 08/23/23 19:35 Completed TROPONIN Q4H Lab 08/23/23 19:35 Completed TROPONIN Q4H Lab 08/23/23 23:30 Ordered TROPONIN Q4H Lab 08/24/23 03:30 Ordered Medication Summary Discontinued Medications Generic Name Dose Route Start Last Admin Trade Name Freq PRN Reason Stop Dose Admin Al Hydrox/Mg Hydrox/Simethicone 30 ml 08/23/23 19:27 08/23/23 19:31 Mag Hydrox/Al Hydrox/Simeth 30 Ml Udcup PO 08/23/23 19:28 30 ml STAT ONE Administration Al Hydrox/Mg Hydrox/Simethicone Confirm 08/23/23 19:28 Mag Hydrox/Al Hydrox/Simeth 30 Ml Udcup Administered 08/23/23 19:29 Dose 30 ml .ROUTE .STK-MED ONE Aspirin 324 mg 08/23/23 19:16 08/23/23 19:30 Aspirin 81 Mg Tab.Chew PO 08/23/23 19:17 324 mg STAT ONE Administration Aspirin Confirm 08/23/23 19:23 Aspirin 81 Mg Tab.Chew Administered 08/23/23 19:24 Dose 324 mg .ROUTE .STK-MED ONE Famotidine 20 mg 08/23/23 19:16 08/23/23 19:30 Famotidine 20 Mg/1 Vial IV 08/23/23 19:17 20 mg STAT ONE Administration Famotidine Confirm 08/23/23 19:23 Famotidine 20 Mg/1 Vial Administered 08/23/23 19:24 Dose 20 mg IV .STK-MED ONE Sodium Chloride 1,000 mls @ 999 mls/hr 08/23/23 19:16 08/23/23 20:37 Sodium Chloride 0.9% 1000 Ml IV 08/23/23 20:16 Infused .Q1H1M STA Infusion Sodium Chloride Confirm 08/23/23 19:24 Sodium Chloride 0.9% 1000 Ml Administered 08/23/23 19:25 Dose 1,000 mls @ ud .ROUTE .STK-MED ONE Pantoprazole Sodium 40 mg 08/23/23 19:16 08/23/23 19:30 Pantoprazole 40 Mg Vial IV 08/23/23 19:17 40 mg STAT ONE Administration Pantoprazole Sodium Confirm 08/23/23 19:24 Pantoprazole 40 Mg Vial Administered 08/23/23 19:25 Dose 40 mg IV .STK-MED ONE Lab/Rad Data: Laboratory Result Diagrams 08/23/23 19:35 08/23/23 19:35 Laboratory Results 08/23/23 08/23/23 08/23/23 Range/Units 19:45 19:35 19:35 WBC (4.0-10.5) x10^3/uL RBC (4.1-5.4) x10^6/uL Hgb (12.0-16.0) g/dL Hct (35-47) % MCV (78-100) fL MCH (26-32) pg MCHC (32-36) g/dL RDW (11.5-14.0) % Plt Count (150-450) x10^3/uL MPV (7.5-11.0) fL Gran % (36.0-66.0) % Immature Gran % (Auto) (0.00-0.4) % Nucleat RBC Rel Count (0.00-0.1) % Eos # (Auto) (0-0.5) x10^3/uL Immature Gran # (Auto) (0.00-0.03) x10^3u/L Absolute Lymphs (auto) (1.0-4.6) x10^3/uL Absolute Monos (auto) (0.0-1.3) x10^3/uL Absolute Nucleated RBC (0.00-0.01) x10^3u/L Lymphocytes % (24.0-44.0) % Monocytes % (0.0-12.0) % Eosinophils % (0.00-5.0) % Basophils % (0.0-0.4) % Absolute Granulocytes (1.4-6.9) x10^3/uL Basophils # (0-0.4) x10^3/uL D-Dimer < 0.19 (0.0-0.50) mg/L Sodium (137-145) mmol/L Potassium (3.5-5.1) mmol/L Chloride (98-107) mmol/L Carbon Dioxide (22-30) mmol/L Anion Gap (5-15) MEQ/L BUN (7-17) mg/dL Creatinine (0.52-1.04) mg/dL Estimated GFR ML/MIN Glucose (74-106) mg/dL Lactic Acid (0.4-2.0) Calcium (8.4-10.2) mg/dL Total Bilirubin (0.2-1.3) mg/dL AST (14-36) U/L ALT (0-35) U/L Alkaline Phosphatase (38-126) U/L Troponin I < 0.012 (0.000-0.034) ng/mL NT-Pro-B Natriuret Pep 185 (<300) pg/mL Serum Total Protein (6.3-8.2) g/dL Albumin (3.5-5.0) g/dL Amylase (30-110) U/L Lipase (23-300) U/L Serum HCG, Qual NEGATIVE (NEGATIVE) 08/23/23 08/23/23 08/23/23 Range/Units 19:35 19:35 19:35 WBC 7.6 (4.0-10.5) x10^3/uL RBC 4.39 (4.1-5.4) x10^6/uL Hgb 12.7 (12.0-16.0) g/dL Hct 39.1 (35-47) % MCV 89.1 (78-100) fL MCH 28.9 (26-32) pg MCHC 32.5 (32-36) g/dL RDW 14.2 H (11.5-14.0) % Plt Count 263 (150-450) x10^3/uL MPV 9.0 (7.5-11.0) fL Gran % 57.0 (36.0-66.0) % Immature Gran % (Auto) 0.3 (0.00-0.4) % Nucleat RBC Rel Count 0.0 (0.00-0.1) % Eos # (Auto) 0.39 (0-0.5) x10^3/uL Immature Gran # (Auto) 0.02 (0.00-0.03) x10^3u/L Absolute Lymphs (auto) 2.25 (1.0-4.6) x10^3/uL Absolute Monos (auto) 0.50 (0.0-1.3) x10^3/uL Absolute Nucleated RBC 0.00 (0.00-0.01) x10^3u/L Lymphocytes % 29.8 (24.0-44.0) % Monocytes % 6.6 (0.0-12.0) % Eosinophils % 5.2 H (0.00-5.0) % Basophils % 1.1 (0.0-0.4) % Absolute Granulocytes 4.31 (1.4-6.9) x10^3/uL Basophils # 0.08 (0-0.4) x10^3/uL D-Dimer (0.0-0.50) mg/L Sodium 137 (137-145) mmol/L Potassium 3.7 (3.5-5.1) mmol/L Chloride 107 (98-107) mmol/L Carbon Dioxide 23 (22-30) mmol/L Anion Gap 10.5 (5-15) MEQ/L BUN 9 (7-17) mg/dL Creatinine 0.61 (0.52-1.04) mg/dL Estimated GFR 118.0 ML/MIN Glucose 89 (74-106) mg/dL Lactic Acid 1.1 (0.4-2.0) Calcium 9.0 (8.4-10.2) mg/dL Total Bilirubin 0.70 (0.2-1.3) mg/dL AST 18 (14-36) U/L ALT 13 (0-35) U/L Alkaline Phosphatase 72 (38-126) U/L Troponin I (0.000-0.034) ng/mL NT-Pro-B Natriuret Pep (<300) pg/mL Serum Total Protein 6.4 (6.3-8.2) g/dL Albumin 3.8 (3.5-5.0) g/dL Amylase 51 (30-110) U/L Lipase 49 (23-300) U/L Serum HCG, Qual (NEGATIVE) - Progress Progress: improved, re-examined Air Movement: good Progress Note: 08/23/23 19:32 pt is advised that even with negative testing performed and her low Heart score, these tests have limitations and there still can be cardiac or other seri ous conditions evolving undetected. She voices understanding and wishes to f/u with her DrJoseph as outpt rather than have further testing in ER or hospital observation, and she has a normal mental status and the capacity to make this choice. Blood Culture(s) Obtained: No Antibiotics given: No Counseled pt/family regarding: lab results, diagnosis, need for follow-up, rad results, smoking cessation Medical Desision Making - Independent Historian Additional History obtained from: Relative/friend, EMS - Discussion of managment Reviewed:: Test results, Need for additional workup Agreed on:: Treatment plan, need for follow-up - Diagnostic Testing Diagnostic test were ordered, analyzed, and reviewed by me: Yes Radiological Interpretation: Interpreted by me, Reviewed by me - Risk of complications The pt has a mod risk of morbidity or mortality based on: Need for prescription drug management The pt has a high risk of morbidity or mortality based on: Decision regarding hospitilization or escalation of hosp level of care - Departure Departure Disposition: Home Clinical Impression: chest pain - resolved, Chronic repetitive motion righ wrist inj Condition: Good Critical Care Time: No Referrals: PHYLICIA LEVI MD [Primary Care Provider] - Follow up/PCP as directed Instructions: Chest Pain (DC), Overuse Injuries (DC), Quitting Smoking ED Additional Instructions: We did not determine a precise cause for your chest pain, and although the initial testing did not confirm cardiac disease, there still is a possibility this could exist or other conditions as yet not detected and still developing. Therefore follow-up with your DrJoseph for further workup is advised, and to return meantime if symptoms recur or any symptoms of concern develop. Also follow-up with your DrJoseph for your right wrist injury/tendon inflammation. Continue splint and use ice, tylenol and consider over the counter salonpas lidocaine patches. return or see Dr. if redness, swelling , increased pain or other concerns meantime. The final chest x-ray reading by the radiologist will be next week and it is good to follow this up with your Dr. due to the Hx of breast cancer we will have him review for any nodules or concerns.
[2023-08-23] MEDS ORDERED: Sodium Chloride 0.9% 1000 ML 1,000 ML IV STA (19:16)
[2023-08-23] MEDS ORDERED: PROTONIX 40 MG IV IV ONE ×2 (19:16→19:24)
[2023-08-23] MEDS ORDERED: BABY ASPIRIN 81 MG CHEW PO ONE (19:16)
[2023-08-23] MEDS ORDERED: Pepcid 20 MG VIAL IV ONE ×2 (19:16→19:23)
[2023-08-23] MEDS ORDERED: BABY ASPIRIN 81 MG CHEW ONE (19:23)
[2023-08-23] MEDS ORDERED: Sodium Chloride 0.9% 1000 ML 1,000 ML ONE (19:24)
[2023-08-23] MEDS ORDERED: MAALOX ES 30 ML UNIT DOSE PO ONE (19:27)
[2023-08-23] MEDS ORDERED: MAALOX ES 30 ML UNIT DOSE ONE (19:28)
[2023-08-23 19:38] LABS: Absolute Neutrophil Ct (ANC) 4.31 x10^3/uL (1.4-6.9); BASOPHIL % 1.1 % (0.0-0.4); Basophil (Absolute #) 0.08 x10^3/uL (0-0.4); Eosinophil % 5.2 % (0.00-5.0); Eosinophil (Absolute #) 0.39 x10^3/uL (0-0.5); Hematocrit 39.1 % (35-47); Hemoglobin 12.7 g/dL (12.0-16.0); IMMATURE GRAN # 0.02 x10^3u/L (0.00-0.03); IMMATURE GRAN % 0.3 % (0.00-0.4); Lymphocyte (Absolute #) 2.25 x10^3/uL (1.0-4.6); Lymphocytes % 29.8 % (24.0-44.0); Mean Cell Volume 89.1 fL (78-100); Mean Corpuscular Hemoglobin 28.9 pg (26-32); Mean Corpuscular Hgb Concent. 32.5 g/dL (32-36); Monocytes % 6.6 % (0.0-12.0); Platelet Count 263 x10^3/uL (150-450); Red Blood Count 4.39 x10^6/uL (4.1-5.4); Red Cell Distribution Width 14.2 % (11.5-14.0); White Blood Count 7.6 x10^3/uL (4.0-10.5)
[2023-08-23 19:56] LABS: HCG SERUM TEST NEGATIVE (NEGATIVE)
[2023-08-23 19:58] LABS: ALBUMIN 3.8 g/dL (3.5-5.0); ANION GAP 10.5 MEQ/L (5-15); BILIRUBIN,TOTAL 0.7 mg/dL (0.2-1.3); Creatinine 1 0.61 mg/dL (0.52-1.04); Potassium 3.7 mmol/L (3.5-5.1); Total Protein 6.4 g/dL (6.3-8.2)
[2023-08-23 20:10] LABS: NT PRO BNPII 185 pg/mL (<300); TROPONIN < 0.012 ng/mL (0.000-0.034)
[2023-08-23 21:02] VITALS: BP 117/65; PULSE 50; RESP 13; O2SAT 99
--- NOTE | 2023-08-23 21:12 | XRAY ---
Indication: Chest pain and dizziness. Comparison: None Portable chest inflated and clear. Heart not enlarged. Bony thorax intact. Incidental bilateral breast implants.
== END 2023-08-23 21:10 | disposition home or self-care (01) ==
LOC: ED 18:58
DX: R07.9 Chest pain, unspecified (principal); S69.81XA Other specified injuries of right wrist, hand and finger(s), initial encounter; Z28.310 Unvaccinated for COVID-19; Z79.899 Other long term (current) drug therapy; Z72.0 Tobacco use
CPT/HCPCS: 36000; 36415; 71045; 80053; 82150; 83605; 83690; 83880; 84484; 84703; 85025; 85379; 93005; 93041; 96374; 96375; 99284; A9270-GY

== ENCOUNTER 2023-08-30 18:20 | Emergency (ER) | payer MEDICAID ==
[2023-08-30 18:58] VITALS: TEMP 98.2; O2SAT 97
--- NOTE | 2023-08-30 19:16 | ERPHSYRPT ---
- History of Present Illness Time Seen by Provider: 08/30/23 19:14 Source: patient Exam Limitations: no limitations Patient Subjective Stated Complaint: Exposure-possible carbon monoxide poisening Triage Nursing Assessment: Patient ambulated back to ED and transferred self to bed. Patient A+O X3. Patient's skin pink, warm and dry. 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 Patient has been seen 2 others times at [facility] ER and [address] [facility] for same symptoms. Patient states yesterday employees did smell a gas smell. Patient states today she started having a heaviness in her chest and felt like the air was "thick" and having a headache. 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 Patient has been seen 2 others times at [facility] ER and [address] [facility] for same symptoms. Patient states yesterday employees did smell a gas smell. Patient states today she started having a heaviness in her chest and felt like the air was "thick" and having a headache. Patient states that this symptom has been going on for last couple weeks. As soon as they go to work they feel having a heaviness in the head and chest Timing/Duration: day(s) Severity: mild Associated Symptoms: chest pain, headaches Allergies/Adverse Reactions: codeine Allergy (Verified 08/30/23 18:47) Sulfa (Sulfonamide Antibiotics) Allergy (Verified 08/30/23 18:47) Home Medications: Iron 18 mg PO DAILY 08/15/23 [History] Hx Tetanus, Diphtheria Vaccination/Date Given: No Hx Influenza Vaccination/Date Given: No Hx Pneumococcal Vaccination/Date Given: No Immunizations Up to Date: Yes Travel Risk - International Travel Have you traveled outside of the country in past 3 weeks: No - Coronavirus Screening Are you exhibiting any of the following symptoms?: No Close contact with a COVID-19 positive Pt in past 14-21 Days: No - Vaccine Status Have you recieved a Covid-19 vaccination: No - Review of Systems Constitutional: No Fever, No Chills Eyes: No Symptoms Ears, Nose, & Throat: No Symptoms Respiratory: No Cough, No Dyspnea Cardiac: Chest Pain, No Edema, No Syncope Abdominal/Gastrointestinal: No Abdominal Pain, No Nausea, No Vomiting, No Diarrhea Genitourinary Symptoms: No Dysuria Musculoskeletal: No Back Pain, No Neck Pain Skin: No Rash Neurological: Dizziness, Headache, No Focal Weakness, No Sensory Changes Psychological: No Symptoms Endocrine: No Symptoms All Other Systems: Reviewed and Negative - Past Medical History Pertinent Past Medical History: Yes Cardiac History: Other Female Reproductive Disorders: Breast Cancer Other Medical History: bilat mastectomy for breast cancer and lymph removal on the right. anemia - Past Surgical History Past Surgical History: Yes Gastrointestinal: Appendectomy, Cholecystectomy Female Surgical History: Mastectomy Other Surgical History: bilat mastectomy with reconstruction - Social History Smoking Status: Current every day smoker How long have you smoked: 18 yrs Exposure to second hand smoke: Yes Drug Use: none Patient Lives Alone: No - Female History Hx Last Menstrual Period: last month Hx Now: No - Nursing Vital Signs Nursing Vital Signs: Initial Vital Signs Temperature 98.2 F 08/30/23 18:48 Pulse Rate 101 H 08/30/23 18:48 Respiratory Rate 20 08/30/23 18:48 Blood Pressure 119/92 08/30/23 18:48 O2 Sat by Pulse Oximetry 97 08/30/23 18:48 Pain Scale Pain Intensity 1 - Physical Exam General Appearance: no apparent distress, alert Eye Exam: PERRL/EOMI, eyes nml inspection Ears, Nose, Throat Exam: normal ENT inspection, TMs normal, pharynx normal, moist mucous membranes Neck Exam: normal inspection, non-tender, supple, full range of motion Respiratory Exam: normal breath sounds, lungs clear, No respiratory distress Cardiovascular Exam: regular rate/rhythm, normal heart sounds, normal peripheral pulses Gastrointestinal/Abdomen Exam: soft, normal bowel sounds, No tenderness, No mass Back Exam: normal inspection, normal range of motion, No CVA tenderness, No vertebral tenderness Extremity Exam: normal inspection, normal range of motion, pelvis stable Neurologic Exam: alert, oriented x 3, cooperative, normal mood/affect, nml cerebellar function, nml station & gait, sensation nml, No motor deficits Skin Exam: normal color, warm, dry, No rash Lymphatic Exam: No adenopathy SpO2: 97 - Course Nursing assessment & vital signs reviewed: Yes EKG Interpreted by Me: Sinus Rhythm Ordered Tests: Active Orders 24 hr Category Date Time Status ABG [ARTERIAL BLOOD GASES] Stat Lab 08/30/23 19:02 Ordered CBC W DIFF Stat Lab 08/30/23 19:00 Completed CMP Stat Lab 08/30/23 19:00 Received VBG [VENOUS BLOOD GAS] Stat Lab 08/30/23 18:39 Ordered Lab/Rad Data: Laboratory Result Diagrams 08/30/23 19:00 Laboratory Results 08/30/23 Range/Units 19:00 WBC 8.3 (4.0-10.5) x10^3/uL RBC 4.44 (4.1-5.4) x10^6/uL Hgb 12.8 (12.0-16.0) g/dL Hct 39.4 (35-47) % MCV 88.7 (78-100) fL MCH 28.8 (26-32) pg MCHC 32.5 (32-36) g/dL RDW 14.2 H (11.5-14.0) % Plt Count 268 (150-450) x10^3/uL MPV 8.9 (7.5-11.0) fL Gran % 60.8 (36.0-66.0) % Immature Gran % (Auto) 0.2 (0.00-0.4) % Nucleat RBC Rel Count 0.0 (0.00-0.1) % Eos # (Auto) 0.29 (0-0.5) x10^3/uL Immature Gran # (Auto) 0.02 (0.00-0.03) x10^3u/L Absolute Lymphs (auto) 2.40 (1.0-4.6) x10^3/uL Absolute Monos (auto) 0.49 (0.0-1.3) x10^3/uL Absolute Nucleated RBC 0.00 (0.00-0.01) x10^3u/L Lymphocytes % 28.8 (24.0-44.0) % Monocytes % 5.9 (0.0-12.0) % Eosinophils % 3.5 (0.00-5.0) % Basophils % 0.8 (0.0-0.4) % Absolute Granulocytes 5.06 (1.4-6.9) x10^3/uL Basophils # 0.07 (0-0.4) x10^3/uL - Progress Progress: improved Counseled pt/family regarding: lab results, diagnosis, need for follow-up Medical Desision Making - Diagnostic Testing Diagnostic test were ordered, analyzed, and reviewed by me: Yes - Risk of complications Low Risk: Low risk of morbidity from additional dx testing or treatment - Departure Departure Disposition: Home Clinical Impression: Natural gas exposure Condition: Stable Critical Care Time: No Referrals: PHYLICIA LEVI MD [Primary Care Provider] - Follow Up with PCP/3 days Instructions: Carbon Monoxide (CO) Poisoning, Carbon Monoxide Poisoning (DC) Additional Instructions: Discharge/Care Plan TRICE RICKS was seen on 08/30/23 in the Emergency Room. The patient was counseled regarding Diagnosis,Lab results, Imaging studies, need for follow up and when to return to the Emergency Room. Prescriptions given: Discharge Note I have spoken with the patient and/or caregivers. I have explained the patient's condition, diagnosis and treatment plan based on the information available to me at this time. I have answered the patient's and/or caregiver's questions and addressed any concerns. The patient and/or caregivers have as good understanding of the patient's diagnosis, condition and treatment plan as can be expected at this point. The vital signs have been stable. The patient's condition is stable and appropriate for discharge from the emergency department. The patient will pursue further outpatient evaluation with the primary care physician or other designated or consulting physician as outlined in the discharge instructions. The patient and/or caregivers are agreeable to this plan of care and follow-up instructions have been explained in detail. The patient and/or caregivers have received these instruction. The patient/and or caregivers are aware that any significant change in condition or worsening of symptoms should prompt an immediate return to this or the closest emergency department or call 911. TRICE RICKS was seen on 08/30/23 n the Emergency Room. At that time you were treated for an emergent condition, during your visit Laboratory, Radiology and/or other procedures may have been ordered. It is very important that you follow-up with your Primary Care Physician PHYLICIA LEVI within the next 24-48 hours to review your Emergency Room visit and the final results of testing that was ordered. Some test results such as Urine Cultures, Blood Cultures, and other cultures if ordered will not be finalized for 24-48 hours. If you do not have a Primary Care Provider please call the medical records department at [phone] ext [phone] to obtain a copy of your results or you may sign into our patient portal to obtain these results by visiting us @ [email or web address] and completing the following steps: 1. Click on the Patient Portal link 2. Click the Patient Self Enrollment Link to complete the enrollment form and entering your 3. Once the enrollment form is completed you will receive an email with a temporary ID and password at the email address you provided. 4. Next choose a user name and password. Your user name must be at least 4 characters long and your password must be at least 4 characters long. 5. Choose a security question from the list and provide your answer to the question. If you already have signed into the Health Portal you may access your Health Care Information 21/04 by the following steps: 1. Login to our website @ [email or web address] 2. Enter your original user name and password. FAQS The [facility] Health Portal is an online tool that contains your Lab Results, Radiology Reports, Visit History, Discharge Instructions and Health Summary Lab and Radiology Results will not be available for 72 hours on the portal. The Portal is a secure site, passwords are encryted and URLs are re-written so they cannot be copied and pasted. You and authorized family members are the only ones who can access your Portal. Also there is a timeout feature that protects your information if you leave the Portal page open. If you have technical difficulty please use the Contact Us link on the page this will allow you to submit any questions you have regarding the Portal or you may contact the Medical Record Department at [phone] ext [phone].
[2023-08-30 19:19] VITALS: RESP 16
[2023-08-30 19:23] LABS: Absolute Neutrophil Ct (ANC) 5.06 x10^3/uL (1.4-6.9); BASOPHIL % 0.8 % (0.0-0.4); Basophil (Absolute #) 0.07 x10^3/uL (0-0.4); Eosinophil % 3.5 % (0.00-5.0); Eosinophil (Absolute #) 0.29 x10^3/uL (0-0.5); Hematocrit 39.4 % (35-47); Hemoglobin 12.8 g/dL (12.0-16.0); IMMATURE GRAN # 0.02 x10^3u/L (0.00-0.03); IMMATURE GRAN % 0.2 % (0.00-0.4); Lymphocytes % 28.8 % (24.0-44.0); Mean Cell Volume 88.7 fL (78-100); Mean Corpuscular Hemoglobin 28.8 pg (26-32); Mean Corpuscular Hgb Concent. 32.5 g/dL (32-36); Mean Platelet Volume 8.9 fL (7.5-11.0); Monocyte (Absolute #) 0.49 x10^3/uL (0.0-1.3); Monocytes % 5.9 % (0.0-12.0); Neutrophil % 60.8 % (36.0-66.0); Platelet Count 268 x10^3/uL (150-450); Red Blood Count 4.44 x10^6/uL (4.1-5.4); Red Cell Distribution Width 14.2 % (11.5-14.0); White Blood Count 8.3 x10^3/uL (4.0-10.5)
[2023-08-30 19:35] LABS: ALBUMIN 4.1 g/dL (3.5-5.0); ANION GAP 11.7 MEQ/L (5-15); BILIRUBIN,TOTAL 0.9 mg/dL (0.2-1.3); Calcium 9.2 mg/dL (8.4-10.2); Creatinine 1 0.6 mg/dL (0.52-1.04); EST GLOMERULAR FILTRATION RATE 118.5 ML/MIN
[2023-08-30 19:52] LABS: VBG BASE EXCESS 3.5 (-2.0-2.0); VBG CARBOXYHEMOGLOBIN 5.4 % T HGB (0.0-6.9); VBG HCO3- 29.1 meq/L (22-28); VBG HEMOGLOBIN 13.4; VBG POTASSIUM 3.9 (3.5-5.1); VBG pH 7.4 (7.32-7.42)
[2023-08-30 19:55] VITALS: BP 122/82; PULSE 70
== END 2023-08-30 19:57 | disposition home or self-care (01) ==
LOC: ED 18:20
DX: T59.891A Toxic effect of other specified gases, fumes and vapors, accidental (unintentional), initial encounter (principal); R51.9 Headache, unspecified; Y92.512 Supermarket, store or market as the place of occurrence of the external cause; R07.9 Chest pain, unspecified; Z28.310 Unvaccinated for COVID-19; Z72.0 Tobacco use
CPT/HCPCS: 36415; 80053; 82375; 82805; 85025; 93005; 99283

== ENCOUNTER 2024-05-27 10:55 | Emergency (ER) | payer MEDICAID ==
[2024-05-27 11:16] VITALS: RESP 18; TEMP 97.8
[2024-05-27] MEDS ORDERED: Sodium Chloride 0.9% 1000 ML 1,000 ML ONE (12:00)
[2024-05-27] MEDS: Sodium Chloride 0.9% 1000 ML 1,000 ML IV STA (12:06)
--- NOTE | 2024-05-27 12:08 | ERPHSYRPT ---
- History of Present Illness Time Seen by Provider: 05/27/24 11:08 Source: patient Exam Limitations: no limitations Patient Subjective Stated Complaint: " I think my blood levels are low, like my anemia. I feel dizzy and confused. I also have had some nausea for the past c ouple of days. Triage Nursing Assessment: Pt presents to ER with complaints of dizziness, nausea, slight confusion, and vaginal bleeding. Believes this is the 2nd time she has menstrated this month and believes is losing more blood than normal. Pt is alert and oriented x 3. Skin is pale, warm, and dry. Believes she maybe anemic, hx of anemia and blood transfusion in 2021. Pt is alert and oriented x 3. Respirations are easy. Denies pain just states has had some intermittent cramping which isn't abnormal for her. Last PAP smear 2 years ago, has IUD in place. States has had precancerous cells in cervix and has been in remission from breast cancer for 3 years. Physician History: 38 years old female with history of breast cancer status post bilateral mastectomies currently not taking tamoxifen, history of anemia presented in the ER with complaints of generalized weakness fatigue tiredness, feeling dizzy and lightheaded with standing. No vertiginous symptoms. Patient also report having occasional nausea for last couple of days with no abdominal pain. Denies any chest pain palpitations or shortness of breath. No dark stool but does report heavy cycles lately and irregular uterine bleeding this month. Reports having similar symptoms in the past with anemia. Allergies/Adverse Reactions: codeine Allergy (Verified 05/27/24 11:16) Sulfa (Sulfonamide Antibiotics) Allergy (Verified 05/27/24 11:16) Home Medications: Iron 18 mg PO DAILY 08/15/23 [History] Hx Tetanus, Diphtheria Vaccination/Date Given: No Hx Influenza Vaccination/Date Given: No Hx Pneumococcal Vaccination/Date Given: No Travel Risk - International Travel Have you traveled outside of the country in past 3 weeks: No - Emerging Infectious Disease Are you exhibiting symptoms associated with any current EIDs: No - Review of Systems Constitutional: Fatigue, Weakness Eyes: No Symptoms Ears, Nose, & Throat: No Symptoms Respiratory: No Symptoms Cardiac: No Symptoms Abdominal/Gastrointestinal: Nausea Genitourinary Symptoms: No Symptoms Musculoskeletal: No Symptoms Skin: No Symptoms Neurological: Dizziness Psychological: No Symptoms Endocrine: No Symptoms Hematologic/Lymphatic: No Symptoms Immunological/Allergic: No Symptoms - Past Medical History Pertinent Past Medical History: Yes Neurological History: No Pertinent History ENT History: No Pertinent History Cardiac History: Other Respiratory History: No Pertinent History Endocrine Medical History: No Pertinent History Musculoskeletal History: No Pertinent History GI Medical History: No Pertinent History History: No Pertinent History Psycho-Social History: No Pertinent History Female Reproductive Disorders: Breast Cancer Other Medical History: bilat mastectomy for breast cancer and lymph removal on the right. anemia, precancerous cells in cervix - Past Surgical History Past Surgical History: Yes Neuro Surgical History: No Pertinent History Cardiac: No Pertinent History Respiratory: No Pertinent History Gastrointestinal: Appendectomy, Cholecystectomy Genitourinary: No Pertinent History Musculoskeletal: No Pertinent History Female Surgical History: Mastectomy Other Surgical History: bilat mastectomy with reconstruction - Female History Hx Last Menstrual Period: 05/27/24 Hx Now: (unkn) - Social History Smoking Status: Current every day smoker How long have you smoked: 18 yrs Exposure to second hand smoke: Yes Drug Use: none Patient Lives Alone: No - Social Determinants of Health Will the patient participate in the screening: Yes Do you worry about a steady place to live?: No Do you have any problems with any of the following?: No known problems In the past 12 months,have you had to go without utilities?: No Transportation Issues: No Has anyone in your support network made you feel unsafe?: No Have you or anyone in your house had to go without enough: No - Nursing Vital Signs Nursing Vital Signs: Initial Vital Signs Blood Pressure 127/91 05/27/24 11:07 O2 Sat by Pulse Oximetry 97 05/27/24 11:07 Pain Scale Pain Intensity 0 - Physical Exam General Appearance: no apparent distress, alert, anxiety Eye Exam: PERRL/EOMI Ears, Nose, Throat Exam: normal ENT inspection, TMs normal, pharynx normal, moist mucous membranes Neck Exam: normal inspection, non-tender, supple, full range of motion Respiratory Exam: normal breath sounds, lungs clear Cardiovascular Exam: regular rate/rhythm, normal heart sounds Gastrointestinal/Abdomen Exam: soft, normal bowel sounds, No tenderness Extremity Exam: normal inspection, normal range of motion Neurologic Exam: alert, oriented x 3, cooperative, certified nursing assistant II-XII nml as tested, normal mood/affect, nml cerebellar function, nml station & gait, sensation nml, No motor deficits Skin Exam: normal color SpO2 Interpretation: normal SpO2: 100 O2 Delivery: Room Air - Course EKG Interpreted by Me: RATE ([id number]), Sinus Rhythm, NORMAL AXIS, NORMAL INTERVALS, NORMAL QRS Ordered Tests: Active Orders 24 hr Category Date Time Status EKG-ER Only STAT Care 05/27/24 11:57 Active IV Insertion STAT Care 05/27/24 11:57 Active Orthostatic Vital Signs STAT Care 05/27/24 11:58 Active Pulse Oximetry (ED) STAT Care 05/27/24 11:57 Active CHEST 1 VIEW (PORTABLE) Stat Exams 05/27/24 11:58 Completed CBC W DIFF Stat Lab 05/27/24 11:57 Completed CMP Stat Lab 05/27/24 12:19 Completed HCG QUALITATIVE, URINE Stat Lab 05/27/24 12:16 Completed Lactic Acid Stat Lab 05/27/24 11:57 Completed MAGNESIUM Stat Lab 05/27/24 12:19 Completed TROPONIN Q4H Lab 05/27/24 12:19 Completed TROPONIN Q4H Lab 05/27/24 16:00 Ordered TROPONIN Q4H Lab 05/27/24 20:00 Ordered UA W/RFX UR CULTURE Stat Lab 05/27/24 12:05 Completed Medication Summary Discontinued Medications Generic Name Dose Route Start Last Admin Trade Name Freq PRN Reason Stop Dose Admin Sodium Chloride 1,000 mls @ 999 mls/hr 05/27/24 11:57 05/27/24 13:13 Sodium Chloride 0.9% 1000 Ml IV 05/27/24 12:57 Infused .Q1H1M STA Infusion Sodium Chloride Confirm 05/27/24 12:00 Sodium Chloride 0.9% 1000 Ml Administered 05/27/24 12:01 Dose 1,000 mls @ ud .ROUTE .STK-MED ONE Lab/Rad Data: Laboratory Result Diagrams 05/27/24 11:57 05/27/24 12:19 Laboratory Results 05/27/24 05/27/24 05/27/24 Range/Units 12:19 12:19 12:16 WBC (3.98-10.04) x10^3/uL RBC (3.93-5.22) x10^6/uL Hgb (11.2-15.7) g/dL Hct (34.1-44.9) % MCV (79.4-94.8) fL MCH (25.6-32.2) pg MCHC (32.2-35.5) g/dL RDW (11.7-14.4) % Plt Count (182-369) x10^3/uL MPV (9.4-12.3) fL Gran % (34.0-71.1) % Immature Gran % (Auto) (0.001-0.429) % Nucleat RBC Rel Count (0.00-0.2) % Eos # (Auto) (0.04-0.36) x10^3/uL Immature Gran # (Auto) (0.001-0.031) x10^3u/L Absolute Lymphs (auto) (1.18-3.74) x10^3/uL Absolute Monos (auto) (0.24-0.86) x10^3/uL Absolute Nucleated RBC (0.00-0.012) x10^3u/L Lymphocytes % (19.3-51.7) % Monocytes % (4.7-12.5) % Eosinophils % (0.7-5.8) % Basophils % (0.1-1.2) % Absolute Granulocytes (1.56-6.13) x10^3/uL Basophils # (0.01-0.08) x10^3/uL Sodium 140 (135-145) mmol/L Potassium 3.7 (3.5-5.1) mmol/L Chloride 107 (98-107) mmol/L Carbon Dioxide 23 (22-30) mmol/L Anion Gap 14.0 (5-15) MEQ/L BUN 12 (7-17) mg/dL Creatinine 0.68 (0.52-1.04) mg/dL Estimated GFR 114.3 ML/MIN Glucose 128 H (74-106) mg/dL Lactic Acid (0.4-2.0) Calcium 9.1 (8.4-10.2) mg/dL Magnesium 2.3 (1.6-2.3) mg/dL Total Bilirubin 0.90 (0.2-1.3) mg/dL AST 22 (14-36) U/L ALT 24 (0-35) U/L Alkaline Phosphatase 59 (38-126) U/L Troponin I < 0.012 (0.000-0.033) ng/mL Serum Total Protein 7.0 (6.3-8.2) g/dL Albumin 4.2 (3.5-5.0) g/dL Urine Color (Yellow) Urine Appearance (Clear) Urine pH (4.6-8.0) Ur Specific [place] (1.005-1.030) Urine Protein (Negative) Urine Glucose (UA) (Negative) mg/dL Urine Ketones (Negative) Urine Blood (Negative) Urine Nitrite (Negative) Urine Bilirubin (Negative) Urine Urobilinogen (0.2) mg/dL Ur Leukocyte Esterase (Negative) U Hyaline Cast (Auto) (0-2) /LPF Urine Microscopic RBC (0-5) /HPF Urine Microscopic WBC (0-5) /HPF Ur Epithelial Cells (None Seen) /HPF Urine Bacteria (None Seen) /HPF Urine Culture Reflexed (NO) Urine HCG, Qual NEGATIVE (NEGATIVE) 05/27/24 05/27/24 05/27/24 Range/Units 12:05 11:57 11:57 WBC 8.7 (3.98-10.04) x10^3/uL RBC 4.41 (3.93-5.22) x10^6/uL Hgb 11.3 (11.2-15.7) g/dL Hct 34.4 (34.1-44.9) % MCV 78.0 L (79.4-94.8) fL MCH 25.6 (25.6-32.2) pg MCHC 32.8 (32.2-35.5) g/dL RDW 16.8 H (11.7-14.4) % Plt Count 335 (182-369) x10^3/uL MPV 10.0 (9.4-12.3) fL Gran % 67.7 (34.0-71.1) % Immature Gran % (Auto) 0.2 (0.001-0.429) % Nucleat RBC Rel Count 0.0 (0.00-0.2) % Eos # (Auto) 0.22 (0.04-0.36) x10^3/uL Immature Gran # (Auto) 0.02 (0.001-0.031) x10^3u/L Absolute Lymphs (auto) 2.04 (1.18-3.74) x10^3/uL Absolute Monos (auto) 0.47 (0.24-0.86) x10^3/uL Absolute Nucleated RBC 0.00 (0.00-0.012) x10^3u/L Lymphocytes % 23.5 (19.3-51.7) % Monocytes % 5.4 (4.7-12.5) % Eosinophils % 2.5 (0.7-5.8) % Basophils % 0.7 (0.1-1.2) % Absolute Granulocytes 5.87 (1.56-6.13) x10^3/uL Basophils # 0.06 (0.01-0.08) x10^3/uL Sodium (135-145) mmol/L Potassium (3.5-5.1) mmol/L Chloride (98-107) mmol/L Carbon Dioxide (22-30) mmol/L Anion Gap (5-15) MEQ/L BUN (7-17) mg/dL Creatinine (0.52-1.04) mg/dL Estimated GFR ML/MIN Glucose (74-106) mg/dL Lactic Acid 2.5 H (0.4-2.0) Calcium (8.4-10.2) mg/dL Magnesium (1.6-2.3) mg/dL Total Bilirubin (0.2-1.3) mg/dL AST (14-36) U/L ALT (0-35) U/L Alkaline Phosphatase (38-126) U/L Troponin I (0.000-0.033) ng/mL Serum Total Protein (6.3-8.2) g/dL Albumin (3.5-5.0) g/dL Urine Color Yellow (Yellow) Urine Appearance Clear (Clear) Urine pH 7.5 (4.6-8.0) Ur Specific [place] <=1.005 (1.005-1.030) Urine Protein Negative (Negative) Urine Glucose (UA) Negative (Negative) mg/dL Urine Ketones Negative (Negative) Urine Blood Large A (Negative) Urine Nitrite Negative (Negative) Urine Bilirubin Negative (Negative) Urine Urobilinogen 1.0 A (0.2) mg/dL Ur Leukocyte Esterase Negative (Negative) U Hyaline Cast (Auto) NONE SEEN (0-2) /LPF Urine Microscopic RBC >100 A (0-5) /HPF Urine Microscopic WBC 0-2 (0-5) /HPF Ur Epithelial Cells None Seen (None Seen) /HPF Urine Bacteria None Seen (None Seen) /HPF Urine Culture Reflexed NO (NO) Urine HCG, Qual (NEGATIVE) - Progress Progress: improved Progress Note: 05/27/24 14:03 38 years old is evaluated in the ER for generalized weakness fatigue tiredness, feeling lightheaded with standing, abnormal uterine bleeding, concern for being anemic. Patient is not in any distress. Lungs clear to auscultation. Abdominal exam is soft nontender. Nonfocal neuroexam. EKG is sinus rhythm with no ST elevations. Negative troponins. Normal white count, fairly unremarkable chemistries except for mildly elevated lactate of 2.5. Stable H&H. No definitive UTI. Patient is currently on her cycle and has blood in urine. Orthostatics are negative. Given fluid bolus and on reevaluation feeling better, do not think needs to repeat lactate at this could be related to some element of dehydration. He does not seem septic. I have offered her COVID testing but patient declined. I do not know the exact cause of her symptoms, could be viral etiology, recommended supportive care and outpatient follow-up. Discussed signs symptoms of worsening needing return to ER which he seems understanding. Stable for discharge. Counseled pt/family regarding: lab results, diagnosis, need for follow-up, rad results Medical Desision Making - Diagnostic Testing Diagnostic test were ordered, analyzed, and reviewed by me: Yes Radiological Interpretation: Reviewed by me - Risk of complications The pt has a mod risk of morbidity or mortality based on: Need for prescription drug management - Departure Departure Disposition: Home Clinical Impression: Generalized weakness, Lightheadedness Condition: Stable Critical Care Time: No Referrals: PHYLICIA LEVI MD [Primary Care Provider] - Follow up with PCP 1 day Instructions: Weakness ED Additional Instructions: Drink plenty of fluids to keep yourself well-hydrated. Follow-up with primary care for reevaluation. Return to ER for worsening of lightheadedness or if having chest pain palpitations or shortness of breath.
[2024-05-27 12:19] LABS: HCG URINE TEST NEGATIVE (NEGATIVE)
[2024-05-27 12:22] LABS: Appearance Clear (Clear); Bacteria None Seen /HPF (None Seen); Bilirubin Negative (Negative); Blood Large (Negative); Epithelial Cells None Seen /HPF (None Seen); Glucose, Urine Negative (Negative); Hyaline Casts NONE SEEN /LPF (0-2); Ketones Negative (Negative); Leukocyte Esterase Negative (Negative); Nitrite Negative (Negative); Ph 7.5 (4.6-8.0); Protein,Urine Dip Negative (Negative); RBC >100 /HPF (0-5); Specific Gravity <=1.005 (1.005-1.030); WBC 0-2 /HPF (0-5)
[2024-05-27 12:25] LABS: Absolute Neutrophil Ct (ANC) 5.87 x10^3/uL (1.56-6.13); BASOPHIL % 0.7 % (0.1-1.2); Basophil (Absolute #) 0.06 x10^3/uL (0.01-0.08); Eosinophil % 2.5 % (0.7-5.8); Eosinophil (Absolute #) 0.22 x10^3/uL (0.04-0.36); Hematocrit 34.4 % (34.1-44.9); Hemoglobin 11.3 g/dL (11.2-15.7); IMMATURE GRAN # 0.02 x10^3u/L (0.001-0.031); IMMATURE GRAN % 0.2 % (0.001-0.429); Lymphocyte (Absolute #) 2.04 x10^3/uL (1.18-3.74); Lymphocytes % 23.5 % (19.3-51.7); Mean Corpuscular Hemoglobin 25.6 pg (25.6-32.2); Mean Corpuscular Hgb Concent. 32.8 g/dL (32.2-35.5); Monocyte (Absolute #) 0.47 x10^3/uL (0.24-0.86); Monocytes % 5.4 % (4.7-12.5); Neutrophil % 67.7 % (34.0-71.1); Platelet Count 335 x10^3/uL (182-369); Red Blood Count 4.41 x10^6/uL (3.93-5.22); Red Cell Distribution Width 16.8 % (11.7-14.4); White Blood Count 8.7 x10^3/uL (3.98-10.04)
[2024-05-27 12:27] LABS: ADD URINE CULTURE? NO (NO)
[2024-05-27 12:39] LABS: ALBUMIN 4.2 g/dL (3.5-5.0); BILIRUBIN,TOTAL 0.9 mg/dL (0.2-1.3); Calcium 9.1 mg/dL (8.4-10.2); Creatinine 1 0.68 mg/dL (0.52-1.04); EST GLOMERULAR FILTRATION RATE 114.3 ML/MIN; MAGNESIUM 2.3 mg/dL (1.6-2.3); Potassium 3.7 mmol/L (3.5-5.1)
--- NOTE | 2024-05-27 12:50 | XRAY ---
Indication: Weakness. Comparison: August 23, 2023 Portable chest again demonstrates normal heart, lungs, and bony thorax with incidental bilateral breast implants.
[2024-05-27 13:08] VITALS: PULSE 65
[2024-05-27 14:07] VITALS: O2SAT 100
[2024-05-27 14:18] VITALS: BP 107/63
== END 2024-05-27 14:26 | disposition home or self-care (01) ==
LOC: ED 10:55
DX: R53.1 Weakness (principal); R42 Dizziness and giddiness; Z72.0 Tobacco use
CPT/HCPCS: 36000; 36415; 71045; 80053; 81001; 81025; 83605; 83735; 84484; 85025; 93005; 94760; 96360; 99284